=== PATIENT | male | born 1945 | race Caucasian/White ===

== ENCOUNTER 2020-10-02 18:36 | Observation (INO) | payer OTHER, MEDICARE ==
[~2020-10-02] VITALS: Ht 172.7 cm; Wt 85.7 kg
[~2020-10-02 18:36] MED LIST: AMLO5 PO; ATOR40TA PO; Aspir 8181 MG PO; CLIN300 PO; HYDR1TAB94 PO; METO50 PO; MULVIT PO; ONDA4ODT MM; Percocet 5-3251 EACH PO; TAMS.4ER PO
[2020-10-02 19:26] LABS: BASOPHILS ABSOLUTE AUTO 0.01 K/mm3 (0.00-0.23); BASOPHILS PERCENT AUTO 0 % (0-2); EOSINOPHILS PERCENT AUTO 0 % (0-6); Hemoglobin 14.3 g/dL (13.5-17.5); IMMATURE GRAN ABSOLUTE AUTO 0.03 K/mm3 (0.00-0.10); IMMATURE GRAN PERCENT AUTO 0 % (0-1); LYMPHOCYTES ABSOLUTE AUTO 0.66 K/mm3 (0.84-5.20); LYMPHOCYTES PERCENT AUTO 6 % (21-46); MONOCYTES ABSOLUTE AUTO 0.37 K/mm3 (0.16-1.47); MONOCYTES PERCENT AUTO 4 % (4-13); Mean Corpuscular HGB 28.5 pg (26.0-34.0); Mean Corpuscular HGB Conc 32.5 g/dL (31.5-36.5); Mean Corpuscular Volume 88 fL (80-100); Mean Platelet Volume 9.9 fL (9.1-12.4); NEUTROPHILS ABSOLUTE AUTO 9.46 K/mm3 (1.96-9.15); NEUTROPHILS PERCENT AUTO 90 % (41-73); Platelet Count 274 K/mm3 (150-400); RDW Coefficient Variation 12.1 % (11.7-14.2); RDW Standard Deviation 38.8 fL (35.1-46.3); Red Blood Cell Count 5.02 M/mm3 (4.30-5.90); White Blood Cell Count 10.53 K/mm3 (4.00-11.30)
[2020-10-02 19:45] LABS: Alanine Aminotransfer (ALT/SGP 18 U/L (12-78); Albumin, Blood 3.9 g/dL (3.4-5.0); Albumin/Globulin Ratio 0.9 (0.8-1.8); Alk Phos 128 U/L (50-136); Anion Gap 8 mmol/L (6-16); Aspartate Aminotrans (AST/SGOT 22 U/L (12-37); Bilirubin, Total 1.1 mg/dL (0.1-1.0); Blood Urea Nitrogen 27 mg/dL (8-24); Bun/Creatinine Ratio 12.1 (12.0-20.0); CO2, Blood 27 mmol/L (21-32); Calcium, Blood 9.9 mg/dL (8.5-10.1); Chloride, Blood 109 mmol/L (98-108); Creatinine, Blood 2.23 mg/dL (0.60-1.20); Globulin, Blood 4.4 g/dL (2.2-4.0); Glomerular Filtration Rate 31 (60-); Glucose, Blood 161 mg/dL (70-99); Potassium, Blood 4.2 mmol/L (3.5-5.5); Sodium, Blood 144 mmol/L (136-145); Total Protein, Blood 8.3 g/dL (6.4-8.2); Troponin I <0.015 ng/mL (0.000-0.040)
[2020-10-03 01:57] LABS: Influenza A, PCR Negative (NEGATIVE); Influenza B, PCR Negative (NEGATIVE); Resp Syncytial Virus, PCR Negative (NEGATIVE); SARS-Cov-2 (COVID-19) PCR, MMC Negative (NEGATIVE)
[2020-10-03 02:54] LABS: Source, Urine Clean Catch
[2020-10-03 02:56] LABS: Appearance, Urine Clear (Clear); Bilirubin, Urine Neg (Neg); Blood, Urine 3+ (Neg); Color, Urine Yellow (P-Yellow); Glucose Qualitative, Urine Neg (Neg); Ketones, Urine 1+ (Neg); Leukocyte Esterase, Urine Neg (Neg); Nitrite, Urine Neg (Neg); Protein, Urine 3+ (Neg); Specific Gravity, Urine 1.015 (1.003-1.022); Urobilinogen, Urine NORM (Normal)
[2020-10-03 03:01] LABS: Squamous Epithelial Cells Few /hpf (Few)
[2020-10-03 03:02] LABS: Bacteria Few /hpf
[2020-10-03 05:56] LABS: BASOPHILS ABSOLUTE AUTO 0.01 K/mm3 (0.00-0.23); BASOPHILS PERCENT AUTO 0 % (0-2); EOSINOPHILS ABSOLUTE AUTO 0.01 K/mm3 (0.00-0.68); EOSINOPHILS PERCENT AUTO 0 % (0-6); Hematocrit 39.6 % (37.0-53.0); Hemoglobin 12.5 g/dL (13.5-17.5); IMMATURE GRAN ABSOLUTE AUTO 0.04 K/mm3 (0.00-0.10); IMMATURE GRAN PERCENT AUTO 0 % (0-1); LYMPHOCYTES ABSOLUTE AUTO 1.28 K/mm3 (0.84-5.20); LYMPHOCYTES PERCENT AUTO 12 % (21-46); MONOCYTES ABSOLUTE AUTO 0.78 K/mm3 (0.16-1.47); MONOCYTES PERCENT AUTO 7 % (4-13); Mean Corpuscular HGB 28.2 pg (26.0-34.0); Mean Corpuscular HGB Conc 31.6 g/dL (31.5-36.5); Mean Corpuscular Volume 89 fL (80-100); Mean Platelet Volume 9.5 fL (9.1-12.4); NEUTROPHILS ABSOLUTE AUTO 8.61 K/mm3 (1.96-9.15); NEUTROPHILS PERCENT AUTO 80 % (41-73); Platelet Count 235 K/mm3 (150-400); RDW Coefficient Variation 12.4 % (11.7-14.2); RDW Standard Deviation 40.7 fL (35.1-46.3); Red Blood Cell Count 4.43 M/mm3 (4.30-5.90); White Blood Cell Count 10.73 K/mm3 (4.00-11.30)
[2020-10-03 06:16] LABS: Bun/Creatinine Ratio 11.3 (12.0-20.0); Calcium, Blood 8.6 mg/dL (8.5-10.1); Creatinine, Blood 2.04 mg/dL (0.60-1.20); Potassium, Blood 3.8 mmol/L (3.5-5.5); Troponin I 0.023 ng/mL (0.000-0.040)
== END 2020-10-03 09:15 | disposition home or self-care (01) ==
LOC: ER 18:36 → ERHOLD 18:37
PROVIDERS: Emergency Medicine; ADMIT Family Medicine
DX: R11.2 Nausea with vomiting, unspecified (principal); I12.9 Hypertensive chronic kidney disease with stage 1 through stage 4 chronic kidney disease, or unspecified chronic kidney disease; N18.30 Chronic kidney disease, stage 3 unspecified; J43.9 Emphysema, unspecified; E78.5 Hyperlipidemia, unspecified; N40.0 Benign prostatic hyperplasia without lower urinary tract symptoms; Q60.0 Renal agenesis, unilateral; I77.810 Thoracic aortic ectasia; Z91.041 Radiographic dye allergy status; Z79.82 Long term (current) use of aspirin; Z79.899 Other long term (current) drug therapy; Z87.891 Personal history of nicotine dependence; Z95.828 Presence of other vascular implants and grafts; Z20.828 Contact with and (suspected) exposure to other viral communicable diseases; Z23 Encounter for immunization
CPT/HCPCS: 0241U; 36415; 51798; 71045; 71250; 80048; 80053; 81001; 83690; 84145; 84484; 85025; 93005; 93010; 94760; 96361; 96365; 96366; 96372-59; 96375; 99285-25; C9113; G0378; J1644; J2405; J7030

== ENCOUNTER 2021-10-21 22:32 | Emergency (ER) | payer MEDICARE, OTHER ==
[~2021-10-21] VITALS: Ht 180.3 cm; Wt 79.4 kg
[2021-10-21 23:20] LABS: BASOPHILS ABSOLUTE AUTO 0.02 K/mm3 (0.00-0.23); BASOPHILS PERCENT AUTO 0 % (0-2); EOSINOPHILS PERCENT AUTO 3 % (0-6); Hematocrit 36.8 % (37.0-53.0); Hemoglobin 11.4 g/dL (13.5-17.5); IMMATURE GRAN ABSOLUTE AUTO 0.02 K/mm3 (0.00-0.10); IMMATURE GRAN PERCENT AUTO 0 % (0-1); LYMPHOCYTES ABSOLUTE AUTO 1.35 K/mm3 (0.84-5.20); LYMPHOCYTES PERCENT AUTO 17 % (21-46); MONOCYTES ABSOLUTE AUTO 0.73 K/mm3 (0.16-1.47); MONOCYTES PERCENT AUTO 9 % (4-13); Mean Corpuscular HGB 26.5 pg (26.0-34.0); Mean Corpuscular Volume 86 fL (80-100); NEUTROPHILS ABSOLUTE AUTO 5.55 K/mm3 (1.96-9.15); NEUTROPHILS PERCENT AUTO 70 % (41-73); Platelet Count 210 K/mm3 (150-400); RDW Coefficient Variation 13.1 % (11.7-14.2); RDW Standard Deviation 40.6 fL (35.1-46.3); White Blood Cell Count 7.87 K/mm3 (4.00-11.30)
[2021-10-21 23:51] LABS: Albumin, Blood 2.4 g/dL (3.4-5.0); Albumin/Globulin Ratio 0.5 (0.8-1.8); Bilirubin, Total 0.3 mg/dL (0.1-1.0); Bun/Creatinine Ratio 16.6 (12.0-20.0); Calcium, Blood 8.9 mg/dL (8.5-10.1); Creatinine, Blood 1.93 mg/dL (0.60-1.20); Globulin, Blood 4.5 g/dL (2.2-4.0); Potassium, Blood 4.5 mmol/L (3.5-5.5); Total Protein, Blood 6.9 g/dL (6.4-8.2); Troponin I 0.019 ng/mL (0.000-0.040)
== END 2021-10-22 05:24 | disposition left against medical advice (07) ==
LOC: ER 22:32
PROVIDERS: Student in an Organized Health Care Education/Training Program
DX: R07.9 Chest pain, unspecified (principal); I10 Essential (primary) hypertension; E78.00 Pure hypercholesterolemia, unspecified; Z88.8 Allergy status to other drugs, medicaments and biological substances; Z79.82 Long term (current) use of aspirin; Z79.899 Other long term (current) drug therapy; Z87.891 Personal history of nicotine dependence
CPT/HCPCS: 36415; 71045; 80053; 84484; 85025; 93005; 93010; 99285-25

== ENCOUNTER 2022-03-28 21:32 | Inpatient (IN) | payer OTHER ==
[~2022-03-28] VITALS: Ht 180.3 cm; Wt 81.5 kg
[~2022-03-28 21:32] MED LIST changes: -ATOR40TA PO; +LIPITOR80 MG PO
[2022-03-28 22:25] LABS: BASOPHILS ABSOLUTE AUTO 0.02 K/mm3 (0.00-0.23); BASOPHILS PERCENT AUTO 0 % (0-2); EOSINOPHILS ABSOLUTE AUTO 0.17 K/mm3 (0.00-0.68); EOSINOPHILS PERCENT AUTO 2 % (0-6); Hematocrit 36.5 % (37.0-53.0); Hemoglobin 11.4 g/dL (13.5-17.5); IMMATURE GRAN ABSOLUTE AUTO 0.02 K/mm3 (0.00-0.10); IMMATURE GRAN PERCENT AUTO 0 % (0-1); LYMPHOCYTES ABSOLUTE AUTO 1.84 K/mm3 (0.84-5.20); LYMPHOCYTES PERCENT AUTO 21 % (21-46); MONOCYTES ABSOLUTE AUTO 0.71 K/mm3 (0.16-1.47); MONOCYTES PERCENT AUTO 8 % (4-13); Mean Corpuscular HGB 27.1 pg (26.0-34.0); Mean Corpuscular HGB Conc 31.2 g/dL (31.5-36.5); Mean Corpuscular Volume 87 fL (80-100); NEUTROPHILS ABSOLUTE AUTO 6.23 K/mm3 (1.96-9.15); NEUTROPHILS PERCENT AUTO 69 % (41-73); Platelet Count 228 K/mm3 (150-400); RDW Coefficient Variation 12.7 % (11.7-14.2); RDW Standard Deviation 40.4 fL (35.1-46.3); White Blood Cell Count 8.99 K/mm3 (4.00-11.30)
[2022-03-28 22:44] LABS: Albumin, Blood 2.8 g/dL (3.4-5.0); Albumin/Globulin Ratio 0.6 (0.8-1.8); Bilirubin, Total 0.4 mg/dL (0.1-1.0); Bun/Creatinine Ratio 13.6 (12.0-20.0); Calcium, Blood 9.1 mg/dL (8.5-10.1); Creatinine, Blood 2.2 mg/dL (0.60-1.20); Globulin, Blood 4.7 g/dL (2.2-4.0); Potassium, Blood 3.7 mmol/L (3.5-5.5); Total Protein, Blood 7.5 g/dL (6.4-8.2)
[2022-03-28 22:46] LABS: D-Dimer, Quantitative 10.47 mg/L FEU (0.00-0.52)
[2022-03-29 00:33] LABS: Anti-Xa UFH, PHA Monitoring <0.10 IU/mL; International Normalized Ratio 1.16; Prothrombin Time Results 12.1 Sec (9.7-11.5)
--- NOTE | 2022-03-29 04:33 | NUR ---
SHIFT SUMMARY: ED ADMIT FOR SOB. PATIENT ARRIVED ON 6L SAT 100%. DECREASED O2 TO 2L PATIENT TOLERATED WELL AND SAT >95%. AMBULATED TO BATHROOM SBA FOR SAFETY- NO SIGNS OF DYSPNEA. EXPRIATORY WHEEZES NOTED BILATERAL UPPER LOBES. TELE = NSR/ST 90-110S MURMUR. USING URNAL FOR URINARY FREQUENCY. PATIENT EXPRESSED STRESS REGARDING HIS NOT BEING HOME WHEN HE LEFT FOR THE HOSPITAL.
[2022-03-29 08:24] LABS: BASOPHILS ABSOLUTE AUTO 0.02 K/mm3 (0.00-0.23); BASOPHILS PERCENT AUTO 0 % (0-2); EOSINOPHILS ABSOLUTE AUTO 0.05 K/mm3 (0.00-0.68); EOSINOPHILS PERCENT AUTO 1 % (0-6); Hematocrit 33.8 % (37.0-53.0); Hemoglobin 10.5 g/dL (13.5-17.5); IMMATURE GRAN ABSOLUTE AUTO 0.02 K/mm3 (0.00-0.10); IMMATURE GRAN PERCENT AUTO 0 % (0-1); LYMPHOCYTES ABSOLUTE AUTO 0.74 K/mm3 (0.84-5.20); LYMPHOCYTES PERCENT AUTO 11 % (21-46); MONOCYTES ABSOLUTE AUTO 0.66 K/mm3 (0.16-1.47); MONOCYTES PERCENT AUTO 10 % (4-13); Mean Corpuscular HGB 26.8 pg (26.0-34.0); Mean Corpuscular HGB Conc 31.1 g/dL (31.5-36.5); Mean Corpuscular Volume 86 fL (80-100); Mean Platelet Volume 9.7 fL (9.1-12.4); NEUTROPHILS ABSOLUTE AUTO 5.32 K/mm3 (1.96-9.15); NEUTROPHILS PERCENT AUTO 78 % (41-73); Platelet Count 205 K/mm3 (150-400); RDW Coefficient Variation 12.9 % (11.7-14.2); RDW Standard Deviation 40.4 fL (35.1-46.3); Red Blood Cell Count 3.92 M/mm3 (4.30-5.90); White Blood Cell Count 6.81 K/mm3 (4.00-11.30)
[2022-03-29 08:52] LABS: Albumin, Blood 2.5 g/dL (3.4-5.0); Albumin/Globulin Ratio 0.6 (0.8-1.8); Bilirubin, Total 0.5 mg/dL (0.1-1.0); Bun/Creatinine Ratio 12.9 (12.0-20.0); Creatinine, Blood 2.24 mg/dL (0.60-1.20); Globulin, Blood 4.5 g/dL (2.2-4.0); Potassium, Blood 3.8 mmol/L (3.5-5.5)
[2022-03-29 14:17] LABS: Percent Saturation 18.2 % (20.0-50.0)
[2022-03-29 14:20] LABS: CPK Creatine Kinase 30 U/L (39-308)
--- NOTE | 2022-03-29 14:40 | NUR ---
CRITICAL LAB PT'S TROPONIN CAME BACK AT 264 FROM INITIAL TROPONIN OF 71. NOTIFIED.
--- NOTE | 2022-03-29 18:42 | NUR ---
SHIFT SUMMARY PT A&OX4. VSS. VQ SCAN & ECHO DONE TODAY. PT'S TROPONIN ELEVATED WITH CRITICAL VALUE. 12 LEAD EKG DONE & ON CHART PER MD ORDER. PT HAS DENIED CP, SOB, LIGHTHEADEDNESS, NAUSEA, DIZZINESS. CARDIOLOGY REFERRAL MADE. PT IS NPO AFTER MN. HEPARIN GTT RUNNING AT ORDERED RATE. TELE SHOWS NSR WITH HR 70'S. PT INDEPENDENT WITH URINAL.
[2022-03-30 04:20] LABS: Hemoglobin 9.9 g/dL (13.5-17.5); Mean Platelet Volume 10.3 fL (9.1-12.4); Platelet Count 196 K/mm3 (150-400)
[2022-03-30 04:38] LABS: Albumin, Blood 2.2 g/dL (3.4-5.0); Anion Gap 6 mmol/L (6-16); Blood Urea Nitrogen 37 mg/dL (8-24); Bun/Creatinine Ratio 15.9 (12.0-20.0); CHOL/HDL RATIO 4.4; CO2, Blood 25 mmol/L (21-32); CPK Creatine Kinase 22 U/L (39-308); Calcium, Blood 8.5 mg/dL (8.5-10.1); Chloride, Blood 111 mmol/L (98-108); Cholesterol 141 mg/dL (50-200); Creatinine, Blood 2.33 mg/dL (0.60-1.20); Glomerular Filtration Rate 28 (60-); Glucose, Blood 111 mg/dL (70-99); HDL Cholesterol 32 mg/dL (>39); LDL/HDL RATIO 2.9; Low Density Lipoprotein Chol 93 mg/dL (0-110); Phosphorus, Blood 3.5 mg/dL (2.5-4.9); Potassium, Blood 4.2 mmol/L (3.5-5.5); Sodium, Blood 142 mmol/L (136-145); Triglycerides 78 mg/dL (30-160); Very Low Density Lipoprot Chol 15 mg/dL (6-32)
--- NOTE | 2022-03-30 05:37 | NUR ---
SHIFT SUMMARY PATIENT ALERT AND ORIENTED. MEDICATED PER EMAR FOR PAIN. REPORTED HAVING POSITIONAL CHEST PAIN, WORSE LAYING DOWN AND RELIEVED WHEN SITTING UP. TREATED PER RT FOR DIFFICULTY BREATHING. BED IN LOWEST POSITION WITH WHEELS LOCKED AND ALARM ON. CALL LIGHT WITHIN REACH. REPORT GIVEN TO ONCOMING RN.
--- NOTE | 2022-03-30 07:48 | NUR ---
HEPARIN DC'D PER MD ORDERS.
--- NOTE | 2022-03-30 09:02 | NUR ---
TELEMETRY RECEIVED CALL FROM [employer] REQUESTED AN ADJUSTMENT ON TELE LEADS TO DETERMINE IF AN EKG IS WARRANTED. SHE WILL SPEAK WITH HER BEAN PICKER AND CALL THIS RN BACK IF AN EKG IS NEEDED. PT DENIES ANY NEW CP, DIFFICULTY BREATHING, NAUSEA, LIGHTHEADEDNESS OR DIZZINESS.
--- NOTE | 2022-03-30 09:22 | NUR ---
LAUNCH ENGINEER IN PT TO GO TO THE OVEREDGE SEWER TODAY AT APPROX NOON. MD WENT OVER CONSENT AND PT SIGNED. CONSENT ON THE CHART. PT HAS BEEN NPO SINCE RI. MEDS GIVEN THIS AM. HEPARIN GTT REMAINS OFF.
--- NOTE | 2022-03-30 13:55 | NUR ---
PCU ADMIT: Pt arrived to PCU from labor service representative at 1336. TR band in place with 11mls of air. Distal CMS intact.
--- NOTE | 2022-03-30 19:22 | NUR ---
SHIFT SUMMARY: Pt transferred to PCU from Medical floor after stent placement in the LAD. NEURO: intact, sleepy; he received one dose of PRN norco for chronic back pain RESPIRATORY: CTA on RA CARDIAC: bilateral edal pulses palpable 1+, radial pulses 2+. TR band was removed without any rebleading of radial access site. pt received reinforment of TR band education. GI/: Pt using urinal independantly. He tolerated his dinner well Skin/MSK: No change Psych/Social: Pt's at bedside after procedure and was appropriately attentive to pt.
[2022-03-31 03:54] LABS: BASOPHILS ABSOLUTE AUTO 0.01 K/mm3 (0.00-0.23); BASOPHILS PERCENT AUTO 0 % (0-2); EOSINOPHILS ABSOLUTE AUTO 0.13 K/mm3 (0.00-0.68); EOSINOPHILS PERCENT AUTO 3 % (0-6); Hematocrit 30.4 % (37.0-53.0); Hemoglobin 9.4 g/dL (13.5-17.5); IMMATURE GRAN ABSOLUTE AUTO 0.01 K/mm3 (0.00-0.10); IMMATURE GRAN PERCENT AUTO 0 % (0-1); LYMPHOCYTES ABSOLUTE AUTO 1.19 K/mm3 (0.84-5.20); LYMPHOCYTES PERCENT AUTO 23 % (21-46); MONOCYTES PERCENT AUTO 10 % (4-13); Mean Corpuscular HGB 26.7 pg (26.0-34.0); Mean Corpuscular HGB Conc 30.9 g/dL (31.5-36.5); Mean Corpuscular Volume 86 fL (80-100); Mean Platelet Volume 10.2 fL (9.1-12.4); NEUTROPHILS ABSOLUTE AUTO 3.45 K/mm3 (1.96-9.15); NEUTROPHILS PERCENT AUTO 65 % (41-73); Platelet Count 207 K/mm3 (150-400); RDW Coefficient Variation 13.2 % (11.7-14.2); RDW Standard Deviation 41.4 fL (35.1-46.3); Red Blood Cell Count 3.52 M/mm3 (4.30-5.90); White Blood Cell Count 5.29 K/mm3 (4.00-11.30)
[2022-03-31 04:16] LABS: Albumin, Blood 2.2 g/dL (3.4-5.0); Anion Gap 8 mmol/L (6-16); Blood Urea Nitrogen 41 mg/dL (8-24); Bun/Creatinine Ratio 17.1 (12.0-20.0); CO2, Blood 22 mmol/L (21-32); Calcium, Blood 8.5 mg/dL (8.5-10.1); Chloride, Blood 111 mmol/L (98-108); Glomerular Filtration Rate 27 (60-); Glucose, Blood 96 mg/dL (70-99); Potassium, Blood 3.6 mmol/L (3.5-5.5); Sodium, Blood 141 mmol/L (136-145)
--- NOTE | 2022-03-31 06:12 | NUR ---
End of shift summary Overnight without issues, VSS, room air, no CP, eager to go home today MACHELLE Osborne
--- NOTE | 2022-03-31 09:26 | NUR ---
AM NOTE: PATIENT ALERT AND ORIENTED X4. HARD OF HEARING. DENIES NUMBNESS/TINGLING. UP TO BATHROOM WITH SBA. ON ROOM AIR, LUNGS SOUNDING CLEAR. DENIES CHEST PAIN/PRESSURE. TELE SHOWING SINUS RHYTHM WITH HR 70-80'S. BP STABLE. MINIMAL EDEMA IN BLE. RIGHT RADIAL SITE POST ANGIO WNL. TEGADERM AND ARM BOARD IN PLACE. SITE REMAINS SOFT, NONTENDER. NO BRUISING OR SIGNS OF BLEEDING. STRONG RADIAL PULSES. AVA ABDOMINAL PAIN/NAUSEA. TOLERATING PO DIET WELL. MODERATE BM THIS AM. USING URINAL TO VOID. ANXIOUS TO GET HOME. DENIES NEEDS AT THIS TIME. PLAN FOR DISCHARGE TODAY. WILL CONTINUE TO MONITOR.
[2022-03-31] MEDS ORDERED: HYDRA25 PO (09:47)
[2022-03-31] MEDS ORDERED: FURO40 PO (09:47)
[2022-03-31] MEDS ORDERED: CLOP75 PO (09:47)
[2022-03-31] MEDS ORDERED: METO50ER PO (09:47)
[2022-03-31] MEDS ORDERED: Isosorbide Mono30 MG PO (09:48)
[2022-03-31] MEDS ORDERED: NITR.4SL SL (09:48)
--- NOTE | 2022-03-31 11:42 | NUR ---
DISCHARGE NOTE: NO ACUTE CHANGES, SEE PREVIOUS AM NOTE FOR UPDATES. VITAL SIGNS REMAIN STABLE. NO CHANGES IN TELE. REMAINED ON ROOM AIR. DENIES PAINS. AND BROTHER AT BEDSIDE FOR DISCHARGE INSTRUCTIONS. THIS RN PROVIDED EXTENSIVE VERBAL AND WRITTEN EDUCATION ON FLUID RESTRICTION, DAILY WEIGHTS, FOLLOW UP APPOINTMENTS, NEW MEDICATIONS (DOSAGE AND TIMING), RIGHT RADIAL SITE AFTER CARE, HEART HEALTHY DIET, SIGNS AND SYMPTOMS OF CHF INCLUDING FLUID OVERLOAD, AND STENT CARD MATERIAL. MEDICATIONS FAXED TO [facility]. IV TAKEN OUT PER PROTOCOL AND WNL. PATIENT LEFT UNIT VIA WHEELCHAIR WITH ALL PERSONAL BELONGINGS, STENT CARD, AND DISCHARGE INFORMATION.
== END 2022-03-31 11:35 | disposition home or self-care (01) | DRG 246 ==
LOC: ER 21:32 → MEDS 23:44 → ER 03-29 00:37 → MEDS 03-29 00:37 → PCU 03-30 13:34 → MEDS 03-30 13:34 → PCU 03-30 13:34
PROVIDERS: Internal Medicine; Internal Medicine Cardiovascular Disease; Student in an Organized Health Care Education/Training Program; ADMIT Internal Medicine
PROC: 027034Z Dilation of Coronary Artery, One Artery with Drug-eluting Intraluminal Device, Percutaneous Approach (ICD-10-PCS; principal; 2022-03-30)
PROC: 4A023N7 Measurement of Cardiac Sampling and Pressure, Left Heart, Percutaneous Approach (ICD-10-PCS; 2022-03-30)
PROC: B2111ZZ Fluoroscopy of Multiple Coronary Arteries using Low Osmolar Contrast (ICD-10-PCS; 2022-03-30)
DX: I13.0 Hypertensive heart and chronic kidney disease with heart failure and stage 1 through stage 4 chronic kidney disease, or unspecified chronic kidney disease (principal); I50.21 Acute systolic (congestive) heart failure; I21.4 Non-ST elevation (NSTEMI) myocardial infarction; J96.01 Acute respiratory failure with hypoxia; N18.4 Chronic kidney disease, stage 4 (severe); R79.1 Abnormal coagulation profile; I25.5 Ischemic cardiomyopathy; I73.9 Peripheral vascular disease, unspecified; I25.10 Atherosclerotic heart disease of native coronary artery without angina pectoris; I71.2 Thoracic aortic aneurysm, without rupture; I27.20 Pulmonary hypertension, unspecified; I08.3 Combined rheumatic disorders of mitral, aortic and tricuspid valves; J44.9 Chronic obstructive pulmonary disease, unspecified; E78.5 Hyperlipidemia, unspecified; Z91.048 Other nonmedicinal substance allergy status; Z79.899 Other long term (current) drug therapy; Z79.82 Long term (current) use of aspirin; Z98.890 Other specified postprocedural states; Z87.891 Personal history of nicotine dependence; Z95.5 Presence of coronary angioplasty implant and graft
CPT/HCPCS: 36415; 71045; 78580; 80053; 80061; 80069; 82550; 82728; 83540; 83550; 83880; 84484; 85014; 85018; 85025; 85049; 85347; 85379; 85520; 85610; 93005; 93010; 93306; 93454; 93571; 93572; 94640; 94664; 94760; 94762; 96374; 99152; 99153; 99285-25; A9270; A9540; C1725; C1769; C1874; C1887; C1894; C9600; J1644; J1940; J2250; J3010; J7030; J7040; Q9967

== ENCOUNTER 2022-04-14 16:58 | Emergency (ER) | payer OTHER ==
[~2022-04-14] VITALS: Ht 180.3 cm; Wt 79.4 kg
[~2022-04-14 16:58] MED LIST changes: +CLOP75 PO; +FURO40 PO; +HYDRA25 PO; +Isosorbide Mono30 MG PO; +METO50ER PO; +NITR.4SL SL
[2022-04-14 18:04] LABS: BASOPHILS ABSOLUTE AUTO 0.02 K/mm3 (0.00-0.23); BASOPHILS PERCENT AUTO 0 % (0-2); EOSINOPHILS ABSOLUTE AUTO 0.22 K/mm3 (0.00-0.68); EOSINOPHILS PERCENT AUTO 3 % (0-6); Hematocrit 33.8 % (37.0-53.0); Hemoglobin 10.4 g/dL (13.5-17.5); IMMATURE GRAN ABSOLUTE AUTO 0.01 K/mm3 (0.00-0.10); IMMATURE GRAN PERCENT AUTO 0 % (0-1); LYMPHOCYTES ABSOLUTE AUTO 1.44 K/mm3 (0.84-5.20); LYMPHOCYTES PERCENT AUTO 22 % (21-46); MONOCYTES ABSOLUTE AUTO 0.52 K/mm3 (0.16-1.47); MONOCYTES PERCENT AUTO 8 % (4-13); Mean Corpuscular HGB Conc 30.8 g/dL (31.5-36.5); Mean Corpuscular Volume 88 fL (80-100); Mean Platelet Volume 10.4 fL (9.1-12.4); NEUTROPHILS ABSOLUTE AUTO 4.39 K/mm3 (1.96-9.15); NEUTROPHILS PERCENT AUTO 67 % (41-73); Platelet Count 209 K/mm3 (150-400); RDW Coefficient Variation 13.5 % (11.7-14.2); RDW Standard Deviation 43.4 fL (35.1-46.3); Red Blood Cell Count 3.85 M/mm3 (4.30-5.90)
[2022-04-14 18:23] LABS: Albumin, Blood 2.7 g/dL (3.4-5.0); Albumin/Globulin Ratio 0.6 (0.8-1.8); Bilirubin, Total 0.5 mg/dL (0.1-1.0); Bun/Creatinine Ratio 14.1 (12.0-20.0); Calcium, Blood 8.5 mg/dL (8.5-10.1); Creatinine, Blood 2.34 mg/dL (0.60-1.20); Globulin, Blood 4.2 g/dL (2.2-4.0); Potassium, Blood 4.1 mmol/L (3.5-5.5); Total Protein, Blood 6.9 g/dL (6.4-8.2)
== END 2022-04-14 22:00 | disposition home or self-care (01) ==
LOC: ER 16:58
PROVIDERS: Physician Assistant
DX: R06.00 Dyspnea, unspecified (principal); I13.0 Hypertensive heart and chronic kidney disease with heart failure and stage 1 through stage 4 chronic kidney disease, or unspecified chronic kidney disease; I50.20 Unspecified systolic (congestive) heart failure; N18.4 Chronic kidney disease, stage 4 (severe); J44.9 Chronic obstructive pulmonary disease, unspecified; Z79.82 Long term (current) use of aspirin; Z79.899 Other long term (current) drug therapy; Z88.8 Allergy status to other drugs, medicaments and biological substances
CPT/HCPCS: 36415; 71046; 80053; 83880; 84484; 85025; 93005; 93010

== ENCOUNTER 2022-10-01 10:09 | Emergency (ER) | payer OTHER ==
[~2022-10-01] VITALS: Ht 180.3 cm; Wt 74.8 kg
[~2022-10-01 10:09] MED LIST changes: +FURO20 PO
[2022-10-01 10:46] LABS: BASOPHILS ABSOLUTE AUTO 0.02 K/mm3 (0.00-0.23); BASOPHILS PERCENT AUTO 0 % (0-2); EOSINOPHILS ABSOLUTE AUTO 0.22 K/mm3 (0.00-0.68); EOSINOPHILS PERCENT AUTO 3 % (0-6); Hematocrit 24.3 % (37.0-53.0); Hemoglobin 7.5 g/dL (13.5-17.5); IMMATURE GRAN ABSOLUTE AUTO 0.03 K/mm3 (0.00-0.10); IMMATURE GRAN PERCENT AUTO 0 % (0-1); LYMPHOCYTES ABSOLUTE AUTO 1.09 K/mm3 (0.84-5.20); LYMPHOCYTES PERCENT AUTO 16 % (21-46); MONOCYTES ABSOLUTE AUTO 0.67 K/mm3 (0.16-1.47); MONOCYTES PERCENT AUTO 10 % (4-13); Mean Corpuscular HGB 29.1 pg (26.0-34.0); Mean Corpuscular HGB Conc 30.9 g/dL (31.5-36.5); Mean Corpuscular Volume 94 fL (80-100); Mean Platelet Volume 9.8 fL (9.1-12.4); NEUTROPHILS ABSOLUTE AUTO 4.92 K/mm3 (1.96-9.15); NEUTROPHILS PERCENT AUTO 71 % (41-73); Platelet Count 244 K/mm3 (150-400); RDW Coefficient Variation 12.6 % (11.7-14.2); RDW Standard Deviation 43.2 fL (35.1-46.3); Red Blood Cell Count 2.58 M/mm3 (4.30-5.90); White Blood Cell Count 6.95 K/mm3 (4.00-11.30)
[2022-10-01 11:06] LABS: Albumin, Blood 2.8 g/dL (3.4-5.0); Albumin/Globulin Ratio 0.7 (0.8-1.8); Bilirubin, Total 0.7 mg/dL (0.1-1.0); Bun/Creatinine Ratio 16.9 (12.0-20.0); Calcium, Blood 8.3 mg/dL (8.5-10.1); Creatinine, Blood 2.43 mg/dL (0.60-1.20); Globulin, Blood 4.2 g/dL (2.2-4.0); Potassium, Blood 4.5 mmol/L (3.5-5.5)
[2022-10-01 16:33] LABS: Hemoglobin 7.2 g/dL (13.5-17.5); Mean Corpuscular HGB 28.6 pg (26.0-34.0); Mean Corpuscular Volume 95 fL (80-100); Mean Platelet Volume 9.8 fL (9.1-12.4); Platelet Count 219 K/mm3 (150-400); RDW Coefficient Variation 12.7 % (11.7-14.2); RDW Standard Deviation 43.7 fL (35.1-46.3); Red Blood Cell Count 2.52 M/mm3 (4.30-5.90)
[2022-10-01] MEDS ORDERED: Norco 5-325 Ta1 EACH PO (16:59)
== END 2022-10-01 17:28 | disposition home or self-care (01) ==
LOC: ER 10:09
PROVIDERS: Student in an Organized Health Care Education/Training Program
DX: S36.892A Contusion of other intra-abdominal organs, initial encounter (principal); R10.31 Right lower quadrant pain; R07.9 Chest pain, unspecified; I12.9 Hypertensive chronic kidney disease with stage 1 through stage 4 chronic kidney disease, or unspecified chronic kidney disease; N18.4 Chronic kidney disease, stage 4 (severe); J44.9 Chronic obstructive pulmonary disease, unspecified; I25.2 Old myocardial infarction; W07.XXXA Fall from chair, initial encounter; Z91.048 Other nonmedicinal substance allergy status; Z79.82 Long term (current) use of aspirin; Z79.899 Other long term (current) drug therapy; Z87.891 Personal history of nicotine dependence
CPT/HCPCS: 36415; 71045; 71260; 74177; 80053; 84484; 85025; 85027; 86850; 86900; 86901; 93005; 93010; A9270; J1200; J2930; Q9967

== ENCOUNTER 2022-10-11 23:05 | Emergency (ER) | payer OTHER ==
[~2022-10-11 23:05] MED LIST changes: +Norco 5-325 Ta1 EACH PO
== END 2022-10-12 02:43 | disposition home or self-care (01) ==
DX: R07.89 Other chest pain (principal); I12.9 Hypertensive chronic kidney disease with stage 1 through stage 4 chronic kidney disease, or unspecified chronic kidney disease; N18.4 Chronic kidney disease, stage 4 (severe); J44.9 Chronic obstructive pulmonary disease, unspecified; E78.5 Hyperlipidemia, unspecified; I25.2 Old myocardial infarction; Z91.048 Other nonmedicinal substance allergy status; Z79.82 Long term (current) use of aspirin; Z79.899 Other long term (current) drug therapy; Z87.891 Personal history of nicotine dependence

== ENCOUNTER 2022-10-22 13:58 | Emergency (ER) | payer OTHER ==
[~2022-10-22] VITALS: Ht 180.3 cm; Wt 77.1 kg
[2022-10-22 15:13] LABS: BASOPHILS ABSOLUTE AUTO 0.01 K/mm3 (0.00-0.23); BASOPHILS PERCENT AUTO 0 % (0-2); EOSINOPHILS ABSOLUTE AUTO 0.29 K/mm3 (0.00-0.68); EOSINOPHILS PERCENT AUTO 5 % (0-6); Hematocrit 28.7 % (37.0-53.0); Hemoglobin 8.6 g/dL (13.5-17.5); IMMATURE GRAN ABSOLUTE AUTO 0.01 K/mm3 (0.00-0.10); IMMATURE GRAN PERCENT AUTO 0 % (0-1); LYMPHOCYTES ABSOLUTE AUTO 0.95 K/mm3 (0.84-5.20); LYMPHOCYTES PERCENT AUTO 16 % (21-46); MONOCYTES ABSOLUTE AUTO 0.56 K/mm3 (0.16-1.47); MONOCYTES PERCENT AUTO 10 % (4-13); Mean Corpuscular HGB 28.7 pg (26.0-34.0); Mean Corpuscular Volume 96 fL (80-100); Mean Platelet Volume 9.9 fL (9.1-12.4); NEUTROPHILS ABSOLUTE AUTO 4.07 K/mm3 (1.96-9.15); NEUTROPHILS PERCENT AUTO 69 % (41-73); Platelet Count 185 K/mm3 (150-400); RDW Coefficient Variation 14.6 % (11.7-14.2); RDW Standard Deviation 50.4 fL (35.1-46.3); White Blood Cell Count 5.89 K/mm3 (4.00-11.30)
[2022-10-22 15:33] LABS: Albumin, Blood 2.9 g/dL (3.4-5.0); Albumin/Globulin Ratio 0.8 (0.8-1.8); Bilirubin, Total 0.7 mg/dL (0.1-1.0); Bun/Creatinine Ratio 14.8 (12.0-20.0); Calcium, Blood 8.5 mg/dL (8.5-10.1); Creatinine, Blood 2.23 mg/dL (0.60-1.20); Globulin, Blood 3.5 g/dL (2.2-4.0); Total Protein, Blood 6.4 g/dL (6.4-8.2)
== END 2022-10-22 20:01 | disposition home or self-care (01) ==
LOC: ER 13:58
PROVIDERS: Physician Assistant
DX: M71.21 Synovial cyst of popliteal space [Baker], right knee (principal); I12.9 Hypertensive chronic kidney disease with stage 1 through stage 4 chronic kidney disease, or unspecified chronic kidney disease; N18.4 Chronic kidney disease, stage 4 (severe); E78.5 Hyperlipidemia, unspecified; J44.9 Chronic obstructive pulmonary disease, unspecified; Z88.8 Allergy status to other drugs, medicaments and biological substances; Z79.899 Other long term (current) drug therapy; Z87.891 Personal history of nicotine dependence
CPT/HCPCS: 36415; 80053; 83605; 85025; 93971

== ENCOUNTER 2022-11-06 00:15 | Emergency (ER) | payer OTHER ==
[~2022-11-06] VITALS: Ht 180.3 cm; Wt 77.1 kg
[2022-11-06 00:32] LABS: BASOPHILS ABSOLUTE AUTO 0.02 K/mm3 (0.00-0.23); BASOPHILS PERCENT AUTO 0 % (0-2); EOSINOPHILS ABSOLUTE AUTO 0.03 K/mm3 (0.00-0.68); EOSINOPHILS PERCENT AUTO 0 % (0-6); Hematocrit 31.1 % (37.0-53.0); Hemoglobin 9.5 g/dL (13.5-17.5); IMMATURE GRAN ABSOLUTE AUTO 0.03 K/mm3 (0.00-0.10); IMMATURE GRAN PERCENT AUTO 0 % (0-1); LYMPHOCYTES ABSOLUTE AUTO 2.25 K/mm3 (0.84-5.20); LYMPHOCYTES PERCENT AUTO 34 % (21-46); MONOCYTES ABSOLUTE AUTO 0.51 K/mm3 (0.16-1.47); MONOCYTES PERCENT AUTO 8 % (4-13); Mean Corpuscular HGB 28.4 pg (26.0-34.0); Mean Corpuscular HGB Conc 30.5 g/dL (31.5-36.5); Mean Corpuscular Volume 93 fL (80-100); Mean Platelet Volume 10.7 fL (9.1-12.4); NEUTROPHILS ABSOLUTE AUTO 3.88 K/mm3 (1.96-9.15); NEUTROPHILS PERCENT AUTO 58 % (41-73); Platelet Count 134 K/mm3 (150-400); RDW Coefficient Variation 13.8 % (11.7-14.2); RDW Standard Deviation 46.7 fL (35.1-46.3); Red Blood Cell Count 3.34 M/mm3 (4.30-5.90); White Blood Cell Count 6.72 K/mm3 (4.00-11.30)
[2022-11-06 00:56] LABS: Bun/Creatinine Ratio 17.6 (12.0-20.0); Calcium, Blood 8.4 mg/dL (8.5-10.1); Creatinine, Blood 2.5 mg/dL (0.60-1.20); Potassium, Blood 4.4 mmol/L (3.5-5.5)
[2022-11-06] MEDS ORDERED: PRED20 PO (01:40)
[2022-11-06] MEDS ORDERED: ALBU90OI INH (01:40)
== END 2022-11-06 02:37 | disposition home or self-care (01) ==
LOC: ER 00:15
PROVIDERS: Emergency Medicine
DX: J44.1 Chronic obstructive pulmonary disease with (acute) exacerbation (principal); I12.9 Hypertensive chronic kidney disease with stage 1 through stage 4 chronic kidney disease, or unspecified chronic kidney disease; N18.4 Chronic kidney disease, stage 4 (severe); D64.9 Anemia, unspecified; E78.5 Hyperlipidemia, unspecified; I25.2 Old myocardial infarction; Z91.048 Other nonmedicinal substance allergy status; Z79.82 Long term (current) use of aspirin; Z79.899 Other long term (current) drug therapy; Z87.891 Personal history of nicotine dependence
CPT/HCPCS: 36415; 71045; 80048; 85025; 93005; 93010; 94644; 94664; J2930

== ENCOUNTER 2022-11-22 11:59 | Inpatient (IN) | payer OTHER ==
[~2022-11-22] VITALS: Ht 180.3 cm; Wt 81.2 kg
[~2022-11-22 11:59] MED LIST changes: +ALBU90OI INH; +PRED20 PO
[2022-11-22] MEDS ORDERED: DIPH50 PO (12:18)
[2022-11-22] MEDS ORDERED: [UNRECOGNIZED DRUG - CODE] SC (12:21)
[2022-11-22 12:49] LABS: Base Excess Venous -5.4 mmol/L; PCO2 Venous 42.5 mmHg (38-42); PO2 Venous 55.2 mmHg (38-42)
[2022-11-22 13:02] LABS: Albumin, Blood 2.8 g/dL (3.4-5.0); Albumin/Globulin Ratio 0.9 (0.8-1.8); BASOPHILS ABSOLUTE AUTO 0.01 K/mm3 (0.00-0.23); BASOPHILS PERCENT AUTO 0 % (0-2); Bilirubin, Total 0.8 mg/dL (0.1-1.0); Bun/Creatinine Ratio 13.7 (12.0-20.0); Calcium, Blood 7.8 mg/dL (8.5-10.1); Creatinine, Blood 2.55 mg/dL (0.60-1.20); EOSINOPHILS ABSOLUTE AUTO 0.08 K/mm3 (0.00-0.68); EOSINOPHILS PERCENT AUTO 1 % (0-6); Hematocrit 30.9 % (37.0-53.0); Hemoglobin 9.5 g/dL (13.5-17.5); IMMATURE GRAN ABSOLUTE AUTO 0.02 K/mm3 (0.00-0.10); IMMATURE GRAN PERCENT AUTO 0 % (0-1); LYMPHOCYTES ABSOLUTE AUTO 0.52 K/mm3 (0.84-5.20); LYMPHOCYTES PERCENT AUTO 7 % (21-46); MONOCYTES ABSOLUTE AUTO 0.41 K/mm3 (0.16-1.47); MONOCYTES PERCENT AUTO 6 % (4-13); Magnesium, Blood 2.2 mg/dL (1.6-2.4); Mean Corpuscular HGB 28.4 pg (26.0-34.0); Mean Corpuscular HGB Conc 30.7 g/dL (31.5-36.5); Mean Corpuscular Volume 92 fL (80-100); Mean Platelet Volume 11.5 fL (9.1-12.4); NEUTROPHILS ABSOLUTE AUTO 6.08 K/mm3 (1.96-9.15); NEUTROPHILS PERCENT AUTO 85 % (41-73); Platelet Count 106 K/mm3 (150-400); Potassium, Blood 3.9 mmol/L (3.5-5.5); RDW Coefficient Variation 15.1 % (11.7-14.2); RDW Standard Deviation 51.1 fL (35.1-46.3); Red Blood Cell Count 3.35 M/mm3 (4.30-5.90); Total Protein, Blood 5.8 g/dL (6.4-8.2); White Blood Cell Count 7.12 K/mm3 (4.00-11.30)
[2022-11-22 14:49] LABS: Influenza A, PCR NEGATIVE (NEGATIVE); Influenza B, PCR NEGATIVE (NEGATIVE); Resp Syncytial Virus, PCR NEGATIVE (NEGATIVE); SARS-Cov-2 (COVID-19) PCR, MMC NEGATIVE (NEGATIVE)
--- NOTE | 2022-11-22 22:55 | NUR ---
ADMISSION: PT ARRIVED TO PCU 15 AT 2150. ABLE TO AMBULATE FROM [facility] BED WITH MINIMAL ASSIST. ALERT AND ORIENTED X4 ABLE TO FOLLOW COMMANDS AND MAKE NEEDS KNOWN. BP HYPERTENSIVE: 150/103. PO BLOOD PRESSURE MEDICATIONS GIVEN. NO COMPLAINTS OF CP/PRESSURE AT THIS TIME. HR AFIB 100'S. SATURATIONS >97% ON RA, LUNG SOUNDS WET W/CRACKLES, RESP LABORED. PT STATES INCREASING SOB FOR X2 WEEKS. RADIAL PULSES STRONG, PEDAL PULSES FAINT/THREADY. +1 EDEMA NOTED IN BLE. SKIN WARM TO TOUCH. ABDOMIMAL HERNIA NOTED. PT HAS ABDOMINAL SCAR FROM PREVIOUS AAA REPAIR. PT CHANGED INTO NEW GOWN AND ATTENDS, URINAL AT BEDSIDE, BED IN LOW, CALL LIGHT IN REACH, ALARM ON, WILL CONTINUE TO MONITOR.
[2022-11-23 04:22] LABS: Hematocrit 30.3 % (37.0-53.0); Hemoglobin 9.6 g/dL (13.5-17.5); Mean Corpuscular HGB 28.5 pg (26.0-34.0); Mean Corpuscular HGB Conc 31.7 g/dL (31.5-36.5); Mean Corpuscular Volume 90 fL (80-100); Mean Platelet Volume 10.4 fL (9.1-12.4); Platelet Count 116 K/mm3 (150-400); RDW Coefficient Variation 15.2 % (11.7-14.2); RDW Standard Deviation 49.7 fL (35.1-46.3); Red Blood Cell Count 3.37 M/mm3 (4.30-5.90); White Blood Cell Count 3.29 K/mm3 (4.00-11.30)
--- NOTE | 2022-11-23 04:46 | NUR ---
SHIFT SUMMARY: NO ACUTE CHANGES SINCE ADMISSION. PT REMAINS ALERT AND ORIENTED X4, COOPERATIVE WITH CARE. HR AFIB 90'S. BP IMPROVED WITH PO MEDICATIONS, SEE EMAR. AFEBRILE. SATURATIONS >95% ON ROOM AIR. CONTINUING TO HAVE AUDIBLE WHEEZES AND DYSPNEA WITH EXCERTION. USES URINAL AT BEDSIDE, NO BM. ABLE TO REPOS IND. PT ANXIOUS REGARDING CURRENT HOME LIFE, PT STATES RECENTLY LEFT AND HAS NOONE TO TAKE CARE OF HIM ONCE D/C. BED IN LOW, ALARM ON, CALL LIGHT IN REACH, WILL REPORT TO ONCOMING RN.
[2022-11-23 04:49] LABS: Albumin, Blood 3.1 g/dL (3.4-5.0); Bilirubin, Total 1.1 mg/dL (0.1-1.0); Bun/Creatinine Ratio 14.8 (12.0-20.0); Calcium, Blood 8.5 mg/dL (8.5-10.1); Creatinine, Blood 2.77 mg/dL (0.60-1.20); Globulin, Blood 3.1 g/dL (2.2-4.0); Potassium, Blood 4.1 mmol/L (3.5-5.5); Total Protein, Blood 6.2 g/dL (6.4-8.2)
--- NOTE | 2022-11-23 10:18 | NUR ---
Pastoral care visitation conducted. Pt was at rest upon entry but easily stirred. He was pleasant and proceeded to share about his recent happenings related to his stay and familial dynamics. Pt communicated clearly about the relational tension with his family. Empathic listening and normalization of felt expression extended. Pt was appreciative and proceeded to rest subsequently. Pastoral support to remain available as needed prospectively.
--- NOTE | 2022-11-23 18:47 | NUR ---
DAY SHIFT SUMMARY PT ORIENTED X4, VSS. AFIB ON TELEMETRY. NOTIFIED DR. BHATT IN ROOM AT MORNING ROUNDS OF NO HISTORY NOTED OF AFIB AND PT UNSURE IF HE'D EVER HAD IT. NOT ON ANTICOAGULANT. MD TO PLACE ORDER FOR ECHO AND ANTICOAGULATION. PT REPORTS ANXIETY AND DISTRESS RELATED TO "LEAVING" HIM. THERAPEUTIC LISTENING AND PRESENCE UTILIZED AND PT REQUESTED JACQUARD LACE WEAVER. JACQUARD LACE WEAVER VISITED LATER IN DAY.
--- NOTE | 2022-11-24 04:58 | NUR ---
SHIFT SUMMARY: PT ALERT AND ORIENTED X4, COOPERATIVE WITH CARE. [place]. BP STABLE, HR REMAINS AFIB 70'S, AFEBRILE, SATURATIONS >95% ON ROOM AIR. PT WAS ABLE TO SLEEP MOST OF THE NIGHT. CALLS APPROPRIATLY. ABLE TO USE URINAL IND AT BEDSIDE. NO BM. PLAN TO START ANTI-COAGULANTS IN AM FOR NEW ONSET AFIB. BED IN LOW, ALARM ON, CALL LIGHT IN REACH, WILL REPORT TO ONCOMING RN.
--- NOTE | 2022-11-24 16:12 | NUR ---
UPDATE PT CONTINUES TO BE ALERT AND ORIENTED. VS STABLE. HR REMAINS AFIB 70'S. O2 SATS >90% ON RA. PT DENIES ANY PAIN. PT UP INDEPENDENT IN THE ROOM AND TO THE BATHROOM NEEDED. PT DENIES ANY PAIN THIS SHIFT. PLAN TO DC IN THE AM. WILL CONTINUE TO MONITOR AND REPORT TO ONCOMING RN
[2022-11-25 03:33] LABS: Base Excess Venous -0.5 mmol/L; Bicarbonate Venous 23.4 mmol/L (24.0-30.0); PCO2 Venous 44.3 mmHg (38-42); pH Blood Venous 7.36 (7.34-7.37)
--- NOTE | 2022-11-25 05:19 | NUR ---
SHIFT SUMMARY PT A&OX4, IND IN THE ROOM, AFIB 70'S-90'S ON TELE, AND SPO2 >93% ON RA. PT HAS DENIED ANGINA, N/V/D, SOB, AND PAIN THIS SHIFT. HE IS COOPERATIVE W/ CARE AND CALLS APPROPRIATELY. WILL CONTINUE TO MONITOR UNTIL SHIFT REPORT IS GIVEN TO THE ONCOMING SHIFT RN. SEE NOTES FOR ANY UPDATES.
--- NOTE | 2022-11-25 07:28 | NUR ---
Pt is alert oriented and pleasantly conversant. Denies any discomfort. Lung sounds are clear, spo2 99% on room air just after getting back to bed after using the toilet. NO dyspnea noted. Edema 1+ noted around his ankles; he states it is much better than it was before. No pedal edema, trace pretibial edema. He says that he is eager to go home today.
[2022-11-25 08:24] LABS: Calcium, Blood 8.2 mg/dL (8.5-10.1); Creatinine, Blood 3.18 mg/dL (0.60-1.20); Potassium, Blood 4.5 mmol/L (3.5-5.5)
--- NOTE | 2022-11-25 13:00 | NUR ---
Pt appears to be sleeping comfortably; he finished all of his lunch.
--- NOTE | 2022-11-25 13:43 | NUR ---
Pt is awake, states that a phone call from his daughter in [place] woke him up. He is requesting set up materials to shave. Set up with supplies to shave at bedside.
--- NOTE | 2022-11-25 16:07 | NUR ---
pt appears to be napping. Respirations are even and unlabored. Heart rate is 72 bpm, atrial fibrillation by telemetry monitoring.
[2022-11-26 04:03] LABS: BASOPHILS PERCENT AUTO 0 % (0-2); EOSINOPHILS ABSOLUTE AUTO 0.11 K/mm3 (0.00-0.68); EOSINOPHILS PERCENT AUTO 2 % (0-6); Hematocrit 32.1 % (37.0-53.0); IMMATURE GRAN ABSOLUTE AUTO 0.02 K/mm3 (0.00-0.10); IMMATURE GRAN PERCENT AUTO 0 % (0-1); LYMPHOCYTES ABSOLUTE AUTO 1.19 K/mm3 (0.84-5.20); LYMPHOCYTES PERCENT AUTO 17 % (21-46); MONOCYTES ABSOLUTE AUTO 0.64 K/mm3 (0.16-1.47); MONOCYTES PERCENT AUTO 9 % (4-13); Mean Corpuscular HGB Conc 31.2 g/dL (31.5-36.5); Mean Corpuscular Volume 90 fL (80-100); Mean Platelet Volume 11.4 fL (9.1-12.4); NEUTROPHILS ABSOLUTE AUTO 4.99 K/mm3 (1.96-9.15); NEUTROPHILS PERCENT AUTO 72 % (41-73); Platelet Count 102 K/mm3 (150-400); RDW Coefficient Variation 15.5 % (11.7-14.2); RDW Standard Deviation 51.6 fL (35.1-46.3); Red Blood Cell Count 3.57 M/mm3 (4.30-5.90); White Blood Cell Count 6.95 K/mm3 (4.00-11.30)
[2022-11-26 04:24] LABS: Bun/Creatinine Ratio 23.7 (12.0-20.0); Calcium, Blood 7.6 mg/dL (8.5-10.1); Creatinine, Blood 3.16 mg/dL (0.60-1.20)
--- NOTE | 2022-11-26 05:33 | NUR ---
SHIFT SUMMARY PT IS A&OX4, IND MOVING IN THE BED, SBA FOR LINE MANAGMENT, BEEN AFIB 60'S-70'S ON TELE, AND BP IS STABLE. PT C/O SOB THIS SHIFT AND WAS PLACED ON 1L NC FOR COMFORT. SP02 >95% ON ROOM AIR AND 1LNC. HIS SOB HAS SUBSIDED SINCE PUT ON THE OXYGEN. PT DENIES ANGINA, N/V/D, AND PAIN. BED IS LOW AND CALL LIGHT IS IN REACH. WILL CONTINUE TO MONITOR UNTIL SHIFT REPORT IS GIVEN TO THE ONCOMING APARNA RN. SEE NOTES FOR ANY UPDATES.
--- NOTE | 2022-11-26 07:49 | NUR ---
This morning the pt is awake, lying in bed, HOB elevated. He is alert, oriented and pleasantly conversant. Ambulatory to the bathroom independently while staff were in the room with him. He states that he feels that his breathing is better. Soft wheezing auscultated throughout the lung ly, diminished in the bases. He has just finished receiving a breathing treatment. States that he really hopes to be released to go home today.
--- NOTE | 2022-11-26 11:50 | NUR ---
Dr. Victor rounded on the patient; states that he will be discharging the patient now.
--- NOTE | 2022-11-26 12:45 | NUR ---
Pt's arrived, and discharge instructions were reviewed with both of them. states that she would prefer to call to make the appointments with PCP and nephrology provider since she has a lot of other appointments on the calendar. Questions were answered. Pt was taken out in wheelchair by SHRUTHI Morales with pt's accompanying.
== END 2022-11-26 12:50 | disposition home or self-care (01) | DRG 291 ==
LOC: ER 11:59 → PCU 16:07
PROVIDERS: Internal Medicine; Student in an Organized Health Care Education/Training Program; ADMIT Internal Medicine
PROC: 5A09357 Assistance with Respiratory Ventilation, Less than 24 Consecutive Hours, Continuous Positive Airway Pressure (ICD-10-PCS; principal; 2022-11-22)
DX: I13.2 Hypertensive heart and chronic kidney disease with heart failure and with stage 5 chronic kidney disease, or end stage renal disease (principal); I50.43 Acute on chronic combined systolic (congestive) and diastolic (congestive) heart failure; J96.22 Acute and chronic respiratory failure with hypercapnia; N17.9 Acute kidney failure, unspecified; N18.5 Chronic kidney disease, stage 5; J44.1 Chronic obstructive pulmonary disease with (acute) exacerbation; Q60.0 Renal agenesis, unilateral; I48.91 Unspecified atrial fibrillation; Z66 Do not resuscitate; I25.10 Atherosclerotic heart disease of native coronary artery without angina pectoris; I25.5 Ischemic cardiomyopathy; E78.5 Hyperlipidemia, unspecified; Z20.822 Contact with and (suspected) exposure to COVID-19; Z91.041 Radiographic dye allergy status; Z79.82 Long term (current) use of aspirin; Z79.01 Long term (current) use of anticoagulants; Z79.899 Other long term (current) drug therapy; Z95.5 Presence of coronary angioplasty implant and graft; Z79.02 Long term (current) use of antithrombotics/antiplatelets; Z79.51 Long term (current) use of inhaled steroids; Z79.52 Long term (current) use of systemic steroids; I25.2 Old myocardial infarction; Z90.49 Acquired absence of other specified parts of digestive tract; Z87.891 Personal history of nicotine dependence; Z98.890 Other specified postprocedural states; Z95.828 Presence of other vascular implants and grafts
CPT/HCPCS: 0241U; 36415; 71045; 80048; 80053; 82803; 83735; 83880; 84145; 84484; 85025; 85027; 93005; 93010; 93306; 94640; 94644; 94664; 94760; 94762; 96365; 96375; 99285-25; A9270; J0696; J1644; J1940; J2930

== ENCOUNTER 2022-12-09 20:44 | Inpatient (IN) | payer OTHER ==
[~2022-12-09] VITALS: Ht 180.3 cm; Wt 81.8 kg
[~2022-12-09 20:44] MED LIST changes: +DIPH50 PO; +[UNRECOGNIZED DRUG - CODE] SC
[2022-12-09 22:04] LABS: BASOPHILS ABSOLUTE AUTO 0.01 K/mm3 (0.00-0.23); BASOPHILS PERCENT AUTO 0 % (0-2); EOSINOPHILS ABSOLUTE AUTO 0.09 K/mm3 (0.00-0.68); EOSINOPHILS PERCENT AUTO 1 % (0-6); Hematocrit 32.1 % (37.0-53.0); Hemoglobin 9.9 g/dL (13.5-17.5); IMMATURE GRAN ABSOLUTE AUTO 0.02 K/mm3 (0.00-0.10); IMMATURE GRAN PERCENT AUTO 0 % (0-1); LYMPHOCYTES ABSOLUTE AUTO 0.59 K/mm3 (0.84-5.20); LYMPHOCYTES PERCENT AUTO 9 % (21-46); MONOCYTES ABSOLUTE AUTO 0.54 K/mm3 (0.16-1.47); MONOCYTES PERCENT AUTO 8 % (4-13); Mean Corpuscular HGB 28.6 pg (26.0-34.0); Mean Corpuscular HGB Conc 30.8 g/dL (31.5-36.5); Mean Corpuscular Volume 93 fL (80-100); Mean Platelet Volume 10.6 fL (9.1-12.4); NEUTROPHILS PERCENT AUTO 81 % (41-73); Platelet Count 108 K/mm3 (150-400); RDW Coefficient Variation 15.9 % (11.7-14.2); RDW Standard Deviation 54.1 fL (35.1-46.3); Red Blood Cell Count 3.46 M/mm3 (4.30-5.90); White Blood Cell Count 6.55 K/mm3 (4.00-11.30)
[2022-12-09 22:11] LABS: Albumin, Blood 2.7 g/dL (3.4-5.0); Albumin/Globulin Ratio 0.9 (0.8-1.8); Bilirubin, Total 0.7 mg/dL (0.1-1.0); Bun/Creatinine Ratio 15.2 (12.0-20.0); Calcium, Blood 8.4 mg/dL (8.5-10.1); Creatinine, Blood 2.57 mg/dL (0.60-1.20); Globulin, Blood 3.1 g/dL (2.2-4.0); Magnesium, Blood 2.3 mg/dL (1.6-2.4); Potassium, Blood 4.5 mmol/L (3.5-5.5); Total Protein, Blood 5.8 g/dL (6.4-8.2)
[2022-12-09 22:55] LABS: Base Excess Venous -3.5 mmol/L; Bicarbonate Venous 21.5 mmol/L (24.0-30.0); PCO2 Venous 46.3 mmHg (38-42)
--- NOTE | 2022-12-10 00:45 | NUR ---
PT ARRIVES TO ICU 14 VIA GURNEY FROM ER, STANDS TO TRANSFER TO BED WITH STANDBY ASSIST AND STEADY GAIT, DOES ADMIT TO FEELING WEAK, STATES THAT BREATHING FEELS MUCH IMPROVED FROM ARRIVAL TO ER. DENIES DIZZINESS/VERTIGO, DENIES CP/PRESSURE. STATES THAT HX HAS NOT CHANGED SINCE ADMISSION ON JAUNUARY 7 OF THIS YEAR, ALSO STATES THAT HIS SPOUSE MANAGES ALL OF HIS HOME MEDICATIONS AND THAT STAFF WILL HAVE TO ADDRESS THESE WITH HER HOWEVER SHE IS HOME SLEEPING OF THIS TIME, HE REQUESTS TO REVIEW HOME MEDICATION LIST WITH SPOUSE LATER THIS AM WHEN SHE IS AWAKE. PLAN IS TO START CARDIZEM GTT
[2022-12-10] MEDS ORDERED: BENADRYL25 M1 PO (01:31)
--- NOTE | 2022-12-10 05:17 | NUR ---
PT WAS ADMITTED FROM ER THIS SHIFT FOR CHF AND AFIB WITH RVR, REPORTED BREATHING FEELING MUCH IMPROVED ON ARRIVAL TO UNIT, HEART RATES INITIALLY UP TO THE 160S, CARDIZEM GTT WAS STARTED AND TITRATED HIGH 15 MG/HR AND HAS SINCE BEEN TITRATED DOWN TO 5 MG/HR, CURRENT RATE IS 80S, PRESSURES IMPROVED BUT REMAIN HYPERTENSIVE AT 150S/90S CURRENTLY. PT REPOSITIONS SELF WELL IN BED, USES CALL LIGHT APPROPRIATELY TO MAKE NEEDS KNOWN.
[2022-12-10 07:42] LABS: Bun/Creatinine Ratio 15.1 (12.0-20.0); Calcium, Blood 8.6 mg/dL (8.5-10.1); Creatinine, Blood 2.71 mg/dL (0.60-1.20); Potassium, Blood 4.8 mmol/L (3.5-5.5)
[2022-12-10 09:01] LABS: PCO2 Arterial 34.9 mmHg (35-45); PO2 Arterial 84.4 mmHg (80-100); pH Blood Arterial 7.39 (7.35-7.45)
--- NOTE | 2022-12-10 09:20 | NUR ---
Spoke w/ Dr. Morataya regarding admin of Lasix IVP and his current creatinine. She advised it was ok to admin the IV lasix as pt was here for a CHF exacerbation and needed to continue his diuresis.
--- NOTE | 2022-12-10 09:40 | NUR ---
Assumed care for pt at 0700. On Cardizem gtt @ 5 mg/hr for A-Fib w/ RVR. Pt on 3.5 lpm o2 via NC. He is A&Ox4, and stnadyb assist when using urinal. Weighed pt using a standing scale due to pt advising he normally weighs between 165-175 lbs; weight from the standing scale was 81.2 kg. Pt ate breakfast and has SCDs in place.
--- NOTE | 2022-12-10 13:30 | NUR ---
Cardizem gtt stopped.
--- NOTE | 2022-12-10 16:07 | NUR ---
Telephone report received from [facility]. Waiting for room to be cleaned and then pt will transfer to PCU 5.
--- NOTE | 2022-12-10 16:19 | NUR ---
Called report to [facility] for PCU #5. Room is being cleaned, she will notify once room is clean and pt can be moved.
--- NOTE | 2022-12-10 18:27 | NUR ---
Pt arrived from ICU. Denies any discomfort or pain at this time. Atrial fibrillation noted 88 bpm by telemetry. Wearing oxygen at 2 l/min delivery, spo2 99%. Vital signs stable. Respirations as rest are even, unlabored. Carrying on pleasant conversation. Oxygen taken off and spo2 is maintaining at 97% on room air. Pt states no bowel movement since Thursday. States he has been having small rabbit pellets stools for the past 2 weeks, since starting inhalers at that time. Voiding at bedside, uses urinal pt states. SCDs on.
--- NOTE | 2022-12-10 19:15 | NUR ---
ASSESSMENT/ASSUMED CARE PT SITTING UP IN BED WATCHING TV. DENIES PAIN OR DISCOMFORT. LUNGS CLEAR BUT DECREASED IN THE BASES ON ROOMAIR. RESP EVEN AND NONLABORED. SOB NOTED WITH ACTIVITY, BUT RESOLVES WITH REST. HEART RATE IRREGULAR AFIB IN THE 70'S. BP STABLE. 2+ PITTING LOWER EXT EDEMA NOTED. SCD'S ON. BT+ ABD SOFT AND NONTENDER. DENIES N/V AT THIS TIME. PT VOIDED CLEAR YELLOW URINE. UP TO THE BATHROOM WITH STANDBY ASSIST. HAD SMALL SOFT LIGHT BROWN HARD FORMED STOOL. BACK TO BED. GAIT STEADY. IV 20G SALINE LOCKED TO LEFT WRIST. FLUSHED WITHOUT DIFFICULTY. SITE CLEAR.
[2022-12-11 03:16] LABS: Hematocrit 30.3 % (37.0-53.0); Hemoglobin 9.5 g/dL (13.5-17.5); Mean Corpuscular HGB 28.5 pg (26.0-34.0); Mean Corpuscular HGB Conc 31.4 g/dL (31.5-36.5); Mean Corpuscular Volume 91 fL (80-100); Mean Platelet Volume 10.4 fL (9.1-12.4); Platelet Count 127 K/mm3 (150-400); RDW Coefficient Variation 15.8 % (11.7-14.2); RDW Standard Deviation 52.9 fL (35.1-46.3); Red Blood Cell Count 3.33 M/mm3 (4.30-5.90); White Blood Cell Count 8.05 K/mm3 (4.00-11.30)
[2022-12-11 03:37] LABS: Albumin, Blood 2.8 g/dL (3.4-5.0); Anion Gap 8 mmol/L (6-16); Blood Urea Nitrogen 51 mg/dL (8-24); Bun/Creatinine Ratio 17.5 (12.0-20.0); CO2, Blood 24 mmol/L (21-32); Calcium, Blood 8.4 mg/dL (8.5-10.1); Chloride, Blood 107 mmol/L (98-108); Creatinine, Blood 2.91 mg/dL (0.60-1.20); Glomerular Filtration Rate 21 (60-); Glucose, Blood 146 mg/dL (70-99); Phosphorus, Blood 4.2 mg/dL (2.5-4.9); Potassium, Blood 4.6 mmol/L (3.5-5.5); Sodium, Blood 139 mmol/L (136-145)
--- NOTE | 2022-12-11 07:25 | NUR ---
Pt awakens easily at time of vital signs. He is alert, oriented and denies any discomfort. States he is feeling "a lot better". Said that he stood at side of bed about an hour ago to void. NO supplemental oxygen in use, spo2 95% on room air. Lung sounds are much clearer than yesterday evening; occasional wheeze ausculated, and diminished sounds in the bases posteriorly, but no rhonchi noted. Atrial fibrillation at 80 bpm noted by telemetry monitoring. Pitting edema 2+ noted on ankles and feet bilaterally, and in some places where the SCDs were not compressing on the tibia. SCDs removed and CHRISTIAN hose placed at this time. Pt strongly encouraged to get OOB for breakfast, to sit in the recliner. Declined at this time but encouraged him to get up when the meal arrives.
--- NOTE | 2022-12-11 10:50 | NUR ---
Call to to update and verify home medication list. No answer to either phone number; I left a voice message.
--- NOTE | 2022-12-11 16:07 | NUR ---
Pt states that he had some sharp pain in the left upper abdominal quadrant, and umbilical area that came and went quickly. Encouraged his activity to increase. He declined OOB to chair for lunch, but did get up for breakfast and had a small BM this morning. He was agreeable to start ambulating to the bathroom for toileting instead of just using the urinal at the bedside.
--- NOTE | 2022-12-11 17:51 | NUR ---
Juan has been alert and oriented this shift, without dypsnea but low tolerance for activity. He tired after being up in the chair after breakfast. Declined OOB to chair for lunch nor for dinner. He was agreeable to the idea of ambulating to the bathroom for toileting to increase his activity level. He is not requiring any supplemental oxygen at rest nor with activity. Occasional moist sounding cough, non-productive. Lung sounds are without crackles, only transient wheeziing noted. Atrial fibrillation 70-90 bpm noted by telemetry monitoring. Bowel sounds active. Pt had a bowel movement this morning. Pitting edema bilaterally lower extremities, 2+ from knees to toes. CHRISTIAN hose are in place. Initiated fluid restriction this evening per new order 1000cc/ 24 hours.
--- NOTE | 2022-12-12 04:50 | NUR ---
SHIFT SUMMARY: PT ALERT AND ORIENTED X4, ABLE TO FOLLOW COMMANDS AND MAKE NEEDS KNOWN. COOPERATIVE WITH CARE. BP STABLE, HR AFIB 70'S, AFEBRILE, SATS >98% ON ROOM AIR. RESPIRATIONS EVEN AND UNLABORED, WHEEZES NOTED IN LOWER BASES. PT WITH NON PRODUCTIVE COUGH. NO COMPLAINTS OF CP/PRESSURE THROUGHOUT THE NIGHT. +2 EDEMA NOTED IN BLE, CHRISTIAN HOSE IN PLACE. PT ABLE TO AMBULATE TO AND FROM BATHROOM IND. NO BM THIS SHIFT, REFUSED PO COLACE, EDUCATION PROVIDED. BED IN LOW, CALL LIGHT IN REACH, WILL REPORT TO ONCOMING RN.
[2022-12-12 05:05] LABS: Albumin, Blood 2.6 g/dL (3.4-5.0); Anion Gap 7 mmol/L (6-16); Blood Urea Nitrogen 67 mg/dL (8-24); CO2, Blood 27 mmol/L (21-32); Calcium, Blood 8.2 mg/dL (8.5-10.1); Chloride, Blood 105 mmol/L (98-108); Creatinine, Blood 3.04 mg/dL (0.60-1.20); Glomerular Filtration Rate 20 (60-); Glucose, Blood 87 mg/dL (70-99); Potassium, Blood 4.1 mmol/L (3.5-5.5); Sodium, Blood 139 mmol/L (136-145)
--- NOTE | 2022-12-12 07:21 | NUR ---
ASSUMED CARE: PT RESTING QUIETLY IN IN BED. AFIB IN 80S ON TELE. NO ACUTE NEEDS OR CONCERNS AT THIS TIME.
--- NOTE | 2022-12-12 11:40 | NUR ---
Pt resting in bed and denies pain at this time. Pt appears weak and fatigued. Mild dyspnea noted as well. Pt reports living at home with his . No children of his own but reports adopting a daughter from current marriage. Listened as Pt reports losing his first to cancer and was for over 30 years. He reports being to his current for almost [address] Morataya in to evaluate and reviews plan of care with Pt. Plan to consult Dr Patel regarding Kidney function. After Dr Morataya leaves this RN engages in therapeutic discussion regarding wishes for code status. Educated on life sustaining treatments inlcuding risk factors and implications of CPR. Pt reports wishes are to remain a full code. Continued supportive visit. Palliative Care will remain available
--- NOTE | 2022-12-12 13:44 | NUR ---
DR URBAN PERFORMED TELECONSULT WITH PT. OT WORKED WITH PT. [employer] HAS BEEN WORKING TO GET PT UP TO CHAIR THIS SHIFT AND TELLING HIM HE HAS TO STAY IN CHAIR FOR AT LEAST HALF HOUR AT A TIME. NO ACUTE NEEDS AT THIS TIME.
--- NOTE | 2022-12-12 17:28 | NUR ---
SHIFT SUMMARY: PT HAS BEEN UP IN CHAIR FOR MEALS THIS SHIFT. DR URBAN CONSULTED VIA TELE CONSULT. RENAL ULTRASOUND COMPLETED THIS SHIFT. PT NOW MEDICAL STATUS, WITHOUT TELE. NO ACUTE NEEDS OR CONCERNS AT THIS TIME.
[2022-12-13 03:48] LABS: Hematocrit 31.9 % (37.0-53.0); Hemoglobin 10.1 g/dL (13.5-17.5)
[2022-12-13 04:04] LABS: Magnesium, Blood 2.1 mg/dL (1.6-2.4)
[2022-12-13 04:05] LABS: Albumin, Blood 2.5 g/dL (3.4-5.0); Anion Gap 7 mmol/L (6-16); Blood Urea Nitrogen 68 mg/dL (8-24); Bun/Creatinine Ratio 21.9 (12.0-20.0); CO2, Blood 27 mmol/L (21-32); Calcium, Blood 8.4 mg/dL (8.5-10.1); Chloride, Blood 106 mmol/L (98-108); Creatinine, Blood 3.11 mg/dL (0.60-1.20); Glomerular Filtration Rate 20 (60-); Glucose, Blood 98 mg/dL (70-99); Potassium, Blood 3.9 mmol/L (3.5-5.5); Sodium, Blood 140 mmol/L (136-145)
--- NOTE | 2022-12-13 04:58 | NUR ---
SHIFT SUMMARY ASSUMED CARE OF PT AT 1900. PT IS A/OX4. TELIDA. HEART SOUNDS IRREGULAR, PT HAS AFIB. LUNG SOUNDS HAVE SLIGHT CRACKLES AT THE BASES. PT INDEPENDENT TO BATHROOM. USED URINAL. STRICT I&O. NO ACUTE EVENTS. PT SLEPT T/O THE NIGHT.
[2022-12-13] MEDS ORDERED: Bumetanide2 MG PO (12:21)
--- NOTE | 2022-12-13 13:29 | NUR ---
DISCHARGE UPDATE DISCHARGE PACKET GONE OVER WITH P AT 1325, PT DISCHARGED AT 1329 VIA WHEELCHAIR AND ON RA. PT PERSONAL BELONGINGS PREVIOUSLY REMOVED FROM ROOM BY PT . DISCHARGE PACKET WITH PT DURING DISCHARGE. PT ABLE TO TRANSFER SELF TO AND FROM WHEELCHAIR, TOLERATED WELL.
== END 2022-12-13 13:29 | disposition home health service (06) | DRG 291 ==
LOC: ER 20:44 → ERHOLD 12-10 00:14 → ICUW 12-10 00:14 → PCU 12-10 00:14 → ICUW 12-10 00:38 → PCU 12-10 18:15
PROVIDERS: Internal Medicine; Internal Medicine Nephrology; Student in an Organized Health Care Education/Training Program; ADMIT Internal Medicine
DX: I13.0 Hypertensive heart and chronic kidney disease with heart failure and stage 1 through stage 4 chronic kidney disease, or unspecified chronic kidney disease (principal); I50.43 Acute on chronic combined systolic (congestive) and diastolic (congestive) heart failure; J96.01 Acute respiratory failure with hypoxia; J44.1 Chronic obstructive pulmonary disease with (acute) exacerbation; N18.4 Chronic kidney disease, stage 4 (severe); Q60.0 Renal agenesis, unilateral; N17.9 Acute kidney failure, unspecified; N25.81 Secondary hyperparathyroidism of renal origin; I48.91 Unspecified atrial fibrillation; I25.10 Atherosclerotic heart disease of native coronary artery without angina pectoris; D63.1 Anemia in chronic kidney disease; E88.09 Other disorders of plasma-protein metabolism, not elsewhere classified; N40.0 Benign prostatic hyperplasia without lower urinary tract symptoms; E78.5 Hyperlipidemia, unspecified; I71.21 Aneurysm of the ascending aorta, without rupture; I25.5 Ischemic cardiomyopathy; I71.40 Abdominal aortic aneurysm, without rupture, unspecified; Z95.5 Presence of coronary angioplasty implant and graft; Z98.890 Other specified postprocedural states; Z91.041 Radiographic dye allergy status; Z79.899 Other long term (current) drug therapy; Z79.02 Long term (current) use of antithrombotics/antiplatelets; Z79.51 Long term (current) use of inhaled steroids; I25.2 Old myocardial infarction; Z90.49 Acquired absence of other specified parts of digestive tract; Z87.891 Personal history of nicotine dependence; Z95.828 Presence of other vascular implants and grafts
CPT/HCPCS: 36415; 36600; 71045; 76770; 80048; 80053; 80069; 82803; 82947; 83735; 83880; 84145; 85014; 85018; 85025; 85027; 93005; 93010; 94640; 94644; 94664; 94760; 96374; 96375; 97110; 97162; 97166; 97535; 99285-25; A9270; J0881; J1940; J2930

== ENCOUNTER 2022-12-30 22:19 | Inpatient (IN) | payer OTHER ==
[~2022-12-30] VITALS: Ht 180.3 cm; Wt 79.5 kg
[~2022-12-30 22:19] MED LIST changes: +BENADRYL25 M1 PO; +Bumetanide2 MG PO
[2022-12-30 22:49] LABS: BASOPHILS ABSOLUTE AUTO 0.02 K/mm3 (0.00-0.23); BASOPHILS PERCENT AUTO 0 % (0-2); EOSINOPHILS ABSOLUTE AUTO 0.07 K/mm3 (0.00-0.68); EOSINOPHILS PERCENT AUTO 1 % (0-6); Hemoglobin 10.6 g/dL (13.5-17.5); IMMATURE GRAN ABSOLUTE AUTO 0.01 K/mm3 (0.00-0.10); IMMATURE GRAN PERCENT AUTO 0 % (0-1); LYMPHOCYTES ABSOLUTE AUTO 1.16 K/mm3 (0.84-5.20); LYMPHOCYTES PERCENT AUTO 17 % (21-46); MONOCYTES ABSOLUTE AUTO 0.57 K/mm3 (0.16-1.47); MONOCYTES PERCENT AUTO 8 % (4-13); Mean Corpuscular HGB 28.6 pg (26.0-34.0); Mean Corpuscular HGB Conc 31.2 g/dL (31.5-36.5); Mean Corpuscular Volume 92 fL (80-100); Mean Platelet Volume 10.6 fL (9.1-12.4); NEUTROPHILS ABSOLUTE AUTO 5.19 K/mm3 (1.96-9.15); NEUTROPHILS PERCENT AUTO 74 % (41-73); Platelet Count 152 K/mm3 (150-400); RDW Standard Deviation 50.3 fL (35.1-46.3); White Blood Cell Count 7.02 K/mm3 (4.00-11.30)
[2022-12-30 23:09] LABS: Albumin/Globulin Ratio 0.8 (0.8-1.8); Bilirubin, Total 0.7 mg/dL (0.1-1.0); Bun/Creatinine Ratio 15.5 (12.0-20.0); Calcium, Blood 8.5 mg/dL (8.5-10.1); Creatinine, Blood 2.58 mg/dL (0.60-1.20); Globulin, Blood 3.6 g/dL (2.2-4.0); Potassium, Blood 4.4 mmol/L (3.5-5.5); Total Protein, Blood 6.6 g/dL (6.4-8.2)
[2022-12-30] MEDS ORDERED: AMLO10 PO (23:38)
[2022-12-30] MEDS ORDERED: OXYC5 PO (23:38)
[2022-12-30] MEDS ORDERED: Aspir 8181 MG PO (23:40)
--- NOTE | 2022-12-31 06:04 | NUR ---
SHIFT SUMMARY PT ALERT AND ORIENTED X 4. HR STABLE. BP STABLE. NO CP OR PRESSURE. PT CURRENLTY ON 5 L VIA NC. PT UNABLE TO VOID, BLADDER SCAN DONE SHOWING OVER 600 ML OF URINE IN BLADDER. ORDERS FOR DUNLAP TO BE PLACED. PT REPORTS CONSTIPATION, MD NOTIFIED AND ORDERS TO BE PLACED. PT ABLE TO PASS TWO SMALL/MEDIUM BOWEL MOVEMENTS AND REPORTS RELIEF. STAND BY ASSIST TO COMMODE. PT USES CALL LIGHT APPROPRIATELY. CALL LIGHT WITHIN REACH. WILL CONT TO MONITOR UNTIL REPORT GIVEN TO DAYSHIFT RN.
[2022-12-31 06:45] LABS: BASOPHILS ABSOLUTE AUTO 0.02 K/mm3 (0.00-0.23); BASOPHILS PERCENT AUTO 0 % (0-2); EOSINOPHILS ABSOLUTE AUTO 0.03 K/mm3 (0.00-0.68); EOSINOPHILS PERCENT AUTO 1 % (0-6); Hematocrit 32.9 % (37.0-53.0); IMMATURE GRAN ABSOLUTE AUTO 0.02 K/mm3 (0.00-0.10); IMMATURE GRAN PERCENT AUTO 0 % (0-1); LYMPHOCYTES ABSOLUTE AUTO 0.66 K/mm3 (0.84-5.20); LYMPHOCYTES PERCENT AUTO 12 % (21-46); MONOCYTES ABSOLUTE AUTO 0.72 K/mm3 (0.16-1.47); MONOCYTES PERCENT AUTO 13 % (4-13); Mean Corpuscular HGB 28.2 pg (26.0-34.0); Mean Corpuscular HGB Conc 30.4 g/dL (31.5-36.5); Mean Corpuscular Volume 93 fL (80-100); Mean Platelet Volume 10.8 fL (9.1-12.4); NEUTROPHILS ABSOLUTE AUTO 4.14 K/mm3 (1.96-9.15); NEUTROPHILS PERCENT AUTO 74 % (41-73); Platelet Count 138 K/mm3 (150-400); RDW Coefficient Variation 14.8 % (11.7-14.2); RDW Standard Deviation 51.7 fL (35.1-46.3); Red Blood Cell Count 3.54 M/mm3 (4.30-5.90); White Blood Cell Count 5.59 K/mm3 (4.00-11.30)
[2022-12-31 07:06] LABS: Albumin, Blood 2.8 g/dL (3.4-5.0); Albumin/Globulin Ratio 0.8 (0.8-1.8); Bilirubin, Total 0.7 mg/dL (0.1-1.0); Bun/Creatinine Ratio 14.7 (12.0-20.0); CPK Creatine Kinase 30 U/L (39-308); Calcium, Blood 8.3 mg/dL (8.5-10.1); Creatinine, Blood 2.66 mg/dL (0.60-1.20); Globulin, Blood 3.6 g/dL (2.2-4.0); Potassium, Blood 4.2 mmol/L (3.5-5.5); Total Protein, Blood 6.4 g/dL (6.4-8.2)
--- NOTE | 2022-12-31 09:35 | NUR ---
AM NOTE: PATIENT ALERT AND ORIENTED X4. [place] AND AT TIMES SLOWER TO RESPOND. OVERALL WEAK. SBA TO BSC. DENIES N/T. PERRLA. BILATERAL CLOSED CIRCUIT SCREEN WATCHER STRENGTH AND EXTREMITY MOVEMENTS. TELE SHOWING AFIB WITH HR 90'S. DENIES CHEST PAIN/PRESSURE/PALPITATIONS. BP STABLE. EDEMA NOTED THROUGHOUT. 3+ EDEMA TO LLE, 2+ EDEMA TO RLE. IV LASIX GIVEN THIS AM. CARDIAC DIET IN PLACE. DUNLAP CATH DRAINING YELLOW URINE. PATIENT COMPLAINS OF CONSTIPATION EARLY THIS AM. ABLE TO HAVE LARGE BM X1 IN BSC. SWALLOW WNL. ON 3-4L NASAL CANNULA THIS AM SATING MID 90'S. STATES HIS SOB HAS IMPROVED SINCE ADMIT. OCCASIONAL MOIST COUGH, UNABLE TO PRODUCE ANY SPUTUM WHEN COUGHING. LUNGS SOUNDING COARSE AND DIM IN BASES. HERNIA NOTED TO ABDOMIN. UP WITH SBA. EATING BREAKFAST AT THIS TIME. IV'S FLUSHED AND SALINE LOCKED. WILL CONTINUE TO MONITOR.
--- NOTE | 2022-12-31 14:04 | NUR ---
CHRISTINE AT BEDSIDE, THIS RN PROVIDED UPDATE. AFTERNOON VITAL STABLE. PATIENT DENIES NEEDS. WILL CONTINUE TO MONITOR.
[2022-12-31 15:03] LABS: CPK Creatine Kinase 29 U/L (39-308)
--- NOTE | 2022-12-31 19:24 | NUR ---
SHIFT SUMMARY: NO ACUTE CHANGES, SEE PREVIOUS NOTES FOR UPDATES. ON ROOM AIR SATING MID 90'S. TELE CONTINUES TO SHOW AFIB WITH HR 70-80'S. EATING WNL. DUNLAP CATH CONTINUES TO DRAIN CLEAR/YELLOW URINE. SBA TO BSC, 2 BOWEL MOVEMENTS THIS SHIFT. CONTINUES TO HAVE COARSE SOUNDING COUGH. CALL LIGHT IN REACH. WILL CONTINUE TO MONITOR AND REPORT OFF TO ONCOMING RN.
--- NOTE | 2023-01-01 05:46 | NUR ---
MILL LABORER SUMMARY ASSUMED CARE OF THE PT AT 1900. HE IS ALERT AND ORIENTED X4, COOPERATIVE WITH CARE. PT BEGAN COMPLAINING OF 2-3/10 LEFT-SIDED CHEST PAIN THAT WAS NOT WORSE WITH PALPATION BUT IMPROVED WITH SITTING THE HEAD OF THE BED UP. HE HAS A HX OF CHF AND REPORTED THAT THIS PAIN HAS BEEN OCCURRING AT HOME FOR 2-[address] URBAN WAS CONTACTED AND AN EKG WAS OBTAINED WITH NO CHANGES. PT REPORTED TAKING OXYCODONE AT HOME FOR THIS PAIN SO WAS GIVEN NORCO WITH RESOLUTION OF THE PAIN. HE HAS 3+ SWELLING TO THE LEFT LOWER EXTREMITY AND 2+ SWELLING TO THE RIGHT LOWER EXTREMITY. HE CONTINUES TO HAVE COARSE BREATH SOUNDS WITH MINIMALLY PRODUCTIVE COUGH. PT HAS BEEN AFIB ON TELE IN THE 90S TO 100S. HE REQUIRED 2L BY NC DURING SLEEP DUE TO DESATURATION INTO THE 80S.
[2023-01-01 06:08] LABS: Albumin, Blood 2.6 g/dL (3.4-5.0); Anion Gap 5 mmol/L (6-16); Blood Urea Nitrogen 43 mg/dL (8-24); Bun/Creatinine Ratio 15.8 (12.0-20.0); CO2, Blood 26 mmol/L (21-32); Calcium, Blood 8.3 mg/dL (8.5-10.1); Chloride, Blood 113 mmol/L (98-108); Creatinine, Blood 2.72 mg/dL (0.60-1.20); Glomerular Filtration Rate 23 (60-); Glucose, Blood 113 mg/dL (70-99); Phosphorus, Blood 4.3 mg/dL (2.5-4.9); Potassium, Blood 4.6 mmol/L (3.5-5.5); Sodium, Blood 144 mmol/L (136-145)
--- NOTE | 2023-01-01 09:53 | NUR ---
AM NOTE: PATIENT ALERT AND ORIENTED X4. HARD OF HEARING. ANXIOUS TO GO HOME TODAY. SBA TO BSC WITH WALKER. DENIES N/T. ON ROOM AIR SATING MID 90'S. OCCASIONAL MOIST SOUNDING COUGH. LUNGS SOUNDING CLEAR. UNABLE TO PRODUCE ANY SPUTUM WHEN COUGHING. PT STATES HIS BREATHING HAS IMPROVED. IV LASIX GIVEN THIS AM. TELE SHOWING AFIB WITH HR 60-80'S. BP STABLE. DENIES CHEST PAIN/PRESSURE. PPP. EDEMA NOTED TO BLE, 2+ IN LLE AND 1+ IN RLE. DENIES ABDMOMINAL PAIN/NAUSEA. EATING WNL. HISTORY OF LARGE HERNIA. DUNLAP CATH IN PLACE DRAINING CLEAR/YELLOW URINE. PATIENT STATES HE HAS NO ISSUES VOIDING AT HOME. CALL LIGHT IN REACH. DENIES NEEDS AT THIS TIME. WILL CONTINUE TO MONITOR.
--- NOTE | 2023-01-01 11:00 | NUR ---
FLUTTER VALVE PRODIVED TO PATIENT. THIS RN EDUCATED ON USE. DUNLAP CATH REMOVED WNL.
[2023-01-01] MEDS ORDERED: AZIT500 PO (11:45)
[2023-01-01] MEDS ORDERED: BUME2 PO (11:47)
[2023-01-01] MEDS ORDERED: VISBIOME 112.51 EACH PO (11:47)
[2023-01-01] MEDS ORDERED: CEFD300 PO (11:48)
[2023-01-01] MEDS ORDERED: IPRAT-ALBUT 0.5-3 ML INH (11:49)
--- NOTE | 2023-01-01 15:49 | NUR ---
DISCHARGE: NO ACUTE CHANGES, SEE PREVIOUS NOTE. PATIENT'S CHRISTINE AT BEDSIDE FOR DISCHARGE. VITAL SIGNS REMAIN STABLE. PATIENT VOIDING IN URINAL POST DUNLAP REMOVAL. REMAINS ON ROOM AIR SATING ABOVE 95%. NO TELE EVENTS. IV'S REMOVED WNL. THIS RN EDUCATED ON HEART FAILURE SIGNS AND SYMPTOMS, NEW MEDICATIONS, FLUTTER VALVE, FOLLOW UP APPOINTMENTS WITH PCP AND NEPHROLOGY, RENAL LABS TO GET DONE WITH PCP F/U, AND TO ACRYLIC FABRICATOR MEDICATIONS AT [facility]. ALREADY TO [facility] AND ABLE TO ACRYLIC FABRICATOR ALL MEDICATIONS BESIDES IPATROPIUM/ALBUTEROL. STATES THE [facility] DID NOT HAVE ANY IN STOCK. THIS RN OFFERED TO CALL INTO A DIFFERENT PHARMACY. ASKED THIS RN TO CALL [facility]. CALL PLACED TO [facility] AND THIS RN INFORMED THIS MEDICATION WAS BACK ORDERED AND THAT THERE WAS A [place] [place] SHORTAGE. THIS RN OFFERED TO CALL BIGGER CHAIN PHARMACIES SUCH [facility] OR [facility]. DENIED THIS. STATES THAT [facility] OFFERED A SUBSTITUTE BUT NOT WILLING TO WAIT FOR MEDICATION TO BE FILLED. STATES "[facility] AND [facility] AM TAKING THIS TO [facility] RE[facility], I WILL BE THE ONE TO SHUT THEM DOWN". PATIENT AND ABLE TO VERBALIZE ALL EDUCATION AND INFORMATION ABOUT NEW PRESCRIPTIONS. PATIENT LEFT UNIT WITH ALL PERSONAL BELONGINGS VIA WHEELCHAIR.
== END 2023-01-01 14:47 | disposition home or self-care (01) | DRG 291 ==
LOC: ER 22:19 → PCU 22:20
PROVIDERS: Internal Medicine; Student in an Organized Health Care Education/Training Program; ADMIT Internal Medicine
DX: I13.0 Hypertensive heart and chronic kidney disease with heart failure and stage 1 through stage 4 chronic kidney disease, or unspecified chronic kidney disease (principal); I50.43 Acute on chronic combined systolic (congestive) and diastolic (congestive) heart failure; J18.9 Pneumonia, unspecified organism; J96.01 Acute respiratory failure with hypoxia; N18.4 Chronic kidney disease, stage 4 (severe); Q60.0 Renal agenesis, unilateral; J44.0 Chronic obstructive pulmonary disease with (acute) lower respiratory infection; J98.11 Atelectasis; E78.5 Hyperlipidemia, unspecified; I25.5 Ischemic cardiomyopathy; I48.91 Unspecified atrial fibrillation; I25.10 Atherosclerotic heart disease of native coronary artery without angina pectoris; N40.0 Benign prostatic hyperplasia without lower urinary tract symptoms; Z86.79 Personal history of other diseases of the circulatory system; Z98.890 Other specified postprocedural states; Z95.5 Presence of coronary angioplasty implant and graft; Z91.041 Radiographic dye allergy status; Z79.899 Other long term (current) drug therapy; Z79.02 Long term (current) use of antithrombotics/antiplatelets; Z79.51 Long term (current) use of inhaled steroids; Z87.891 Personal history of nicotine dependence; I25.2 Old myocardial infarction
CPT/HCPCS: 36415; 71045; 80053; 80069; 82550; 83880; 84484; 85025; 93005; 93010; 94640; 94664; 94762; 96365; 96375; 99285-25; A9270; J0456; J0696; J1650; J1940; J7050

== ENCOUNTER 2023-01-17 22:19 | Inpatient (IN) | payer OTHER ==
[~2023-01-17] VITALS: Ht 180.3 cm; Wt 81.5 kg
[~2023-01-17 22:19] MED LIST changes: +AMLO10 PO; +ATOR40TA PO; +AZIT500 PO; +BUME2 PO; +CEFD300 PO; +IPRAT-ALBUT 0.5-3 ML INH; -LIPITOR80 MG PO; +OXYC5 PO; +VISBIOME 112.51 EACH PO
[2023-01-17 22:35] LABS: BASOPHILS ABSOLUTE AUTO 0.03 K/mm3 (0.00-0.23); BASOPHILS PERCENT AUTO 0 % (0-2); EOSINOPHILS ABSOLUTE AUTO 0.14 K/mm3 (0.00-0.68); EOSINOPHILS PERCENT AUTO 2 % (0-6); Hematocrit 33.1 % (37.0-53.0); Hemoglobin 9.9 g/dL (13.5-17.5); IMMATURE GRAN ABSOLUTE AUTO 0.02 K/mm3 (0.00-0.10); IMMATURE GRAN PERCENT AUTO 0 % (0-1); LYMPHOCYTES ABSOLUTE AUTO 2.24 K/mm3 (0.84-5.20); LYMPHOCYTES PERCENT AUTO 26 % (21-46); MONOCYTES ABSOLUTE AUTO 0.77 K/mm3 (0.16-1.47); MONOCYTES PERCENT AUTO 9 % (4-13); Mean Corpuscular HGB 27.6 pg (26.0-34.0); Mean Corpuscular HGB Conc 29.9 g/dL (31.5-36.5); Mean Corpuscular Volume 92 fL (80-100); Mean Platelet Volume 10.9 fL (9.1-12.4); NEUTROPHILS ABSOLUTE AUTO 5.39 K/mm3 (1.96-9.15); NEUTROPHILS PERCENT AUTO 63 % (41-73); Platelet Count 164 K/mm3 (150-400); RDW Coefficient Variation 14.9 % (11.7-14.2); RDW Standard Deviation 50.1 fL (35.1-46.3); Red Blood Cell Count 3.59 M/mm3 (4.30-5.90); White Blood Cell Count 8.59 K/mm3 (4.00-11.30)
[2023-01-17 22:57] LABS: Albumin, Blood 3.1 g/dL (3.4-5.0); Albumin/Globulin Ratio 0.8 (0.8-1.8); Bilirubin, Total 0.6 mg/dL (0.1-1.0); Bun/Creatinine Ratio 12.4 (12.0-20.0); Calcium, Blood 8.9 mg/dL (8.5-10.1); Creatinine, Blood 2.82 mg/dL (0.60-1.20); Globulin, Blood 3.7 g/dL (2.2-4.0); Potassium, Blood 4.7 mmol/L (3.5-5.5); Total Protein, Blood 6.8 g/dL (6.4-8.2)
--- NOTE | 2023-01-18 02:10 | NUR ---
SPOKE WITH THE PT REGARDING RESUSCITATION STATUS DURING ADMIT ASSESSMENT AND PT REPORTS THAT HE WANTS "ONE TRY THEN GIVE IT OVER TO MY OR SON". SPOKE WITH [facility] RESIDENT WHO REPORTS PT AND STATED DNR ON ADMISSION. PT WILL NEED CONVERSATION WITH HOSPITALIST AND IN THE MORNING.
[2023-01-18 02:32] LABS: BASOPHILS ABSOLUTE AUTO 0.01 K/mm3 (0.00-0.23); BASOPHILS PERCENT AUTO 0 % (0-2); EOSINOPHILS ABSOLUTE AUTO 0.01 K/mm3 (0.00-0.68); EOSINOPHILS PERCENT AUTO 0 % (0-6); Hematocrit 33.6 % (37.0-53.0); Hemoglobin 10.2 g/dL (13.5-17.5); IMMATURE GRAN ABSOLUTE AUTO 0.02 K/mm3 (0.00-0.10); IMMATURE GRAN PERCENT AUTO 0 % (0-1); LYMPHOCYTES ABSOLUTE AUTO 0.22 K/mm3 (0.84-5.20); LYMPHOCYTES PERCENT AUTO 4 % (21-46); MONOCYTES ABSOLUTE AUTO 0.06 K/mm3 (0.16-1.47); MONOCYTES PERCENT AUTO 1 % (4-13); Mean Corpuscular HGB 27.6 pg (26.0-34.0); Mean Corpuscular HGB Conc 30.4 g/dL (31.5-36.5); Mean Corpuscular Volume 91 fL (80-100); Mean Platelet Volume 10.7 fL (9.1-12.4); NEUTROPHILS ABSOLUTE AUTO 5.98 K/mm3 (1.96-9.15); NEUTROPHILS PERCENT AUTO 95 % (41-73); Platelet Count 152 K/mm3 (150-400); RDW Coefficient Variation 14.9 % (11.7-14.2); RDW Standard Deviation 50.3 fL (35.1-46.3); Red Blood Cell Count 3.69 M/mm3 (4.30-5.90)
[2023-01-18 02:57] LABS: Albumin, Blood 3.1 g/dL (3.4-5.0); Albumin/Globulin Ratio 0.8 (0.8-1.8); Bilirubin, Total 0.6 mg/dL (0.1-1.0); Creatinine, Blood 2.77 mg/dL (0.60-1.20); Globulin, Blood 3.8 g/dL (2.2-4.0); Potassium, Blood 4.2 mmol/L (3.5-5.5); Total Protein, Blood 6.9 g/dL (6.4-8.2)
--- NOTE | 2023-01-18 06:48 | NUR ---
DEXIGRAPH OPERATOR SUMMARY ASSUMED CARE OF PT AT 0140 ON ADMIT FROM ER. PT IS ALERT AND ORIENTED X4, COOPERATIVE AND PLEASANT. PT ARRIVED ON CARDIZEM DRIP AT 5 MLS/HR AND HEART RATE HAS BEEN TRENDING DOWN INTO THE 60S WITH STABLE BP SO DRIP WAS STOPPED AT 0606 THIS MORNING. PT DENIES CHEST PAIN AND REPORTS IMPROVEMENT IN SOB. HE HAS BEEN UNABLE TO URINATE MORE THAN 50 MLS THIS SHIFT DESPITE BEING MEDICATED WITH BUMEX IN THE ER. BLADDER SCAN SHOWED >566 MLS IN HIS BLADDER SO STRAIGHT CATH WAS PERFORMED PER PROTOCOL WITH 750 MLS OF YELLOW URINE OUTPUT. PT HAS BEEN LEFT ON 2L BY NC DUE TO PREVIOUS DESATURATIONS WHILE SLEEPING. HE HAS 3+ EDEMA TO THE LEFT LEG AND 2+ TO THE RIGHT LEG. BREATH SOUNDS DIMINISHED THROUGHOUT. PT IS SBA AND ABLE TO AMBULATE AROUND HIS HOME NORMALLY WITHOUT ASSISTANCE.
--- NOTE | 2023-01-18 09:29 | NUR ---
AM NOTE Pt alert, oriented x4; calm and cooperative with care. Pt moves ind in bed, up with sba in room. Pt denies pain, chest pain/pressure, nausea, dizziness and numb/tingling. Pt reports sob has improved, spo2 >90% on ra, breathing even and unlabored. Tele afib 70-80's, bp stable. Edema noted to ble left greater than the right. Abd distended, pt states normal for him, states it hernia. Will monitor urine output, pt needed straight cath on last shift. Other vss. No other acute changes noted. Will continue to monitor.
--- NOTE | 2023-01-18 18:31 | NUR ---
Shift Summary Pt started on PO metoprolol this am. Pt receiving iv bumex. Vss. Bladder scan this afternoon 334, pt voided 300 out right after. No other acute changes noted. Will continue to monitor.
[2023-01-19 04:57] LABS: BASOPHILS ABSOLUTE AUTO 0.01 K/mm3 (0.00-0.23); BASOPHILS PERCENT AUTO 0 % (0-2); EOSINOPHILS PERCENT AUTO 0 % (0-6); Hematocrit 29.8 % (37.0-53.0); Hemoglobin 9.2 g/dL (13.5-17.5); IMMATURE GRAN ABSOLUTE AUTO 0.02 K/mm3 (0.00-0.10); IMMATURE GRAN PERCENT AUTO 0 % (0-1); LYMPHOCYTES ABSOLUTE AUTO 0.67 K/mm3 (0.84-5.20); LYMPHOCYTES PERCENT AUTO 10 % (21-46); MONOCYTES ABSOLUTE AUTO 0.49 K/mm3 (0.16-1.47); MONOCYTES PERCENT AUTO 7 % (4-13); Mean Corpuscular HGB 27.9 pg (26.0-34.0); Mean Corpuscular HGB Conc 30.9 g/dL (31.5-36.5); Mean Corpuscular Volume 90 fL (80-100); Mean Platelet Volume 11.3 fL (9.1-12.4); NEUTROPHILS ABSOLUTE AUTO 5.79 K/mm3 (1.96-9.15); NEUTROPHILS PERCENT AUTO 83 % (41-73); Platelet Count 148 K/mm3 (150-400); RDW Coefficient Variation 15.1 % (11.7-14.2); RDW Standard Deviation 50.4 fL (35.1-46.3); White Blood Cell Count 6.98 K/mm3 (4.00-11.30)
[2023-01-19 05:14] LABS: Bun/Creatinine Ratio 15.6 (12.0-20.0); Calcium, Blood 8.7 mg/dL (8.5-10.1); Creatinine, Blood 2.88 mg/dL (0.60-1.20); Potassium, Blood 4.7 mmol/L (3.5-5.5)
--- NOTE | 2023-01-19 06:48 | NUR ---
LEATHER BELT LOOP CUTTER SUMMARY ASSUMED CARE OF THE PATIENT AT 1900. HE IS ALERT AND ORIENTED X4, COOPERATIVE. PT MOVING AROUND WITH MINIMAL ASSISTANCE. HE IS ABLE TO SIT AT THE EDGE OF THE BED TO URINATE. PT HAD TWO EPISODES OF URINATION THIS SHIFT AND SMALL AMOUNT OF PO INTAKE. HE HAS BEEN AFIB ON TELE RANGING BETWEEN 80 AND 100S. HE DID HAVE SOME EPISODES OF "TIGHTNESS" IN HIS CHEST THAT IMPROVED WITH SITTING THE HEAD OF THE BED UP AND SOME BREATHING TXS. HE STILL HAS SWELLING TO BLE. LUNG SOUNDS STILL DIMINISHED IN THE BASES. SATURATIONS HAVE BEEN MID TO HIGH 90S ON 1L BY NC.
--- NOTE | 2023-01-19 07:27 | NUR ---
AM NOTE PT ALERT, ORIENTED x4; FORGETFUL AT TIMES. PT RESTING IN BED, UP WITH SBA IN ROOM. PT DENIES PAIN, CHEST PAIN/PRESSURE, SOB, NAUSES, DIZZINESS AND NUMB/TINGLING AT THIS TIME. TELE AFIB 70-80, BP STABLE. SPO2 >90% ON RA, BREATHING EVEN UNLABORED, SCATTERED EXP WHEEZE NOTED. ABD DISTENDED, MIDLINE HERNIA PER PT, +BT x4 QUAD. WILL MONITOR OUTPUT DURING SHIFT. OTHER VSS. WILL CONTINUE TO MONITOR.
--- NOTE | 2023-01-19 14:48 | NUR ---
Discharge note No acute changes noted t/o shift. Pt educated on discharge instructions, follow up appointment and prescriptions. [facility]. Pt plans to attempt to pick up driver prescriptions on way home if spouse brought his id to pick him up. Vss. Pt left via wheelchair at 1312
== END 2023-01-19 13:12 | disposition home or self-care (01) | DRG 291 ==
LOC: ER 22:19 → PCU 01-18 01:34
PROVIDERS: Emergency Medicine; Internal Medicine; Student in an Organized Health Care Education/Training Program; ADMIT Internal Medicine
DX: I13.0 Hypertensive heart and chronic kidney disease with heart failure and stage 1 through stage 4 chronic kidney disease, or unspecified chronic kidney disease (principal); I50.43 Acute on chronic combined systolic (congestive) and diastolic (congestive) heart failure; J96.01 Acute respiratory failure with hypoxia; N18.4 Chronic kidney disease, stage 4 (severe); Q60.0 Renal agenesis, unilateral; Z66 Do not resuscitate; I48.91 Unspecified atrial fibrillation; J44.9 Chronic obstructive pulmonary disease, unspecified; E78.5 Hyperlipidemia, unspecified; I25.5 Ischemic cardiomyopathy; I25.10 Atherosclerotic heart disease of native coronary artery without angina pectoris; N40.0 Benign prostatic hyperplasia without lower urinary tract symptoms; Z79.02 Long term (current) use of antithrombotics/antiplatelets; Z95.5 Presence of coronary angioplasty implant and graft; Z79.899 Other long term (current) drug therapy; Z98.890 Other specified postprocedural states; Z91.041 Radiographic dye allergy status; Z79.2 Long term (current) use of antibiotics; Z79.51 Long term (current) use of inhaled steroids; Z87.891 Personal history of nicotine dependence; I25.2 Old myocardial infarction; Z90.49 Acquired absence of other specified parts of digestive tract
CPT/HCPCS: 36415; 51701; 71045; 80048; 80053; 83880; 84484; 85025; 93005; 93010; 94640; 94664; 94762; 96365; 96366; 96375; 99285-25; A9270; J1650; J1940

== ENCOUNTER 2023-01-30 23:26 | Inpatient (IN) | payer OTHER ==
[~2023-01-30] VITALS: Ht 180.3 cm; Wt 79.9 kg
[2023-01-30 23:51] LABS: BASOPHILS ABSOLUTE AUTO 0.02 K/mm3 (0.00-0.23); BASOPHILS PERCENT AUTO 0 % (0-2); EOSINOPHILS ABSOLUTE AUTO 0.09 K/mm3 (0.00-0.68); EOSINOPHILS PERCENT AUTO 1 % (0-6); Hematocrit 32.5 % (37.0-53.0); Hemoglobin 10.1 g/dL (13.5-17.5); IMMATURE GRAN ABSOLUTE AUTO 0.02 K/mm3 (0.00-0.10); IMMATURE GRAN PERCENT AUTO 0 % (0-1); LYMPHOCYTES ABSOLUTE AUTO 1.03 K/mm3 (0.84-5.20); LYMPHOCYTES PERCENT AUTO 13 % (21-46); MONOCYTES PERCENT AUTO 7 % (4-13); Mean Corpuscular HGB 27.7 pg (26.0-34.0); Mean Corpuscular HGB Conc 31.1 g/dL (31.5-36.5); Mean Corpuscular Volume 89 fL (80-100); Mean Platelet Volume 10.6 fL (9.1-12.4); NEUTROPHILS ABSOLUTE AUTO 6.39 K/mm3 (1.96-9.15); NEUTROPHILS PERCENT AUTO 79 % (41-73); Platelet Count 118 K/mm3 (150-400); RDW Coefficient Variation 14.9 % (11.7-14.2); RDW Standard Deviation 48.6 fL (35.1-46.3); Red Blood Cell Count 3.64 M/mm3 (4.30-5.90); White Blood Cell Count 8.15 K/mm3 (4.00-11.30)
[2023-01-31 00:06] LABS: Albumin, Blood 3.2 g/dL (3.4-5.0); Albumin/Globulin Ratio 0.9 (0.8-1.8); Bilirubin, Total 0.6 mg/dL (0.1-1.0); Bun/Creatinine Ratio 14.1 (12.0-20.0); Calcium, Blood 8.7 mg/dL (8.5-10.1); Creatinine, Blood 2.63 mg/dL (0.60-1.20); Globulin, Blood 3.7 g/dL (2.2-4.0); Potassium, Blood 3.7 mmol/L (3.5-5.5); Total Protein, Blood 6.9 g/dL (6.4-8.2)
[2023-01-31 07:56] LABS: CPK Creatine Kinase 36 U/L (39-308)
[2023-01-31 15:19] LABS: CPK Creatine Kinase 43 U/L (39-308)
--- NOTE | 2023-01-31 18:27 | NUR ---
SHIFT SUMMARY 12:20 RECEIVED PT TO RM 337 [employer]IA [employer] FROM ER. PT ABLE TO TX SELF TO BED WITH SBA. PT ADMITTED FOR CHF EXAC. PER REPORT, PT JUST D/C'D RECENTLY FOR SIMULAR SYMPTOMS. PT DOESN'T KNOW WHAT MEDS HE TAKES OR IF AND WHEN HE TAKES THEM. PT REPORTED HELPS WITH MEDS. PT ABLE TO USE URINAL AT BS. BUMEX GIVEN IN ER. PER REPORT, PT VOIDED 900cc IN ER. HX A-FIB, COPD, HTN, CHF, AND CKD 5. PT REQUESTED RT TX THIS AFTERNOON. DR JOSUE NOTIFIED FOR HOME MEDICATION ORDERS. RT TO FOR TX ONCE ORDERS IN. PT'S HERE EARLIER TO ASSIST WITH HOME MED LIST. PT ANXIOUS ABOUT HOME MEDS BEING GIVEN. REVIEWED EMAR WITH PT; VERBALIZED UNDERSTANDING. CALL LT IN REACH. ABLE TO MAKE NEEDS KNOWN.
[2023-02-01 06:09] LABS: BASOPHILS ABSOLUTE AUTO 0.02 K/mm3 (0.00-0.23); BASOPHILS PERCENT AUTO 0 % (0-2); EOSINOPHILS ABSOLUTE AUTO 0.15 K/mm3 (0.00-0.68); EOSINOPHILS PERCENT AUTO 2 % (0-6); Hemoglobin 9.7 g/dL (13.5-17.5); IMMATURE GRAN ABSOLUTE AUTO 0.01 K/mm3 (0.00-0.10); IMMATURE GRAN PERCENT AUTO 0 % (0-1); LYMPHOCYTES PERCENT AUTO 15 % (21-46); MONOCYTES ABSOLUTE AUTO 0.54 K/mm3 (0.16-1.47); MONOCYTES PERCENT AUTO 8 % (4-13); Mean Corpuscular HGB 28.2 pg (26.0-34.0); Mean Corpuscular HGB Conc 31.3 g/dL (31.5-36.5); Mean Corpuscular Volume 90 fL (80-100); Mean Platelet Volume 10.9 fL (9.1-12.4); NEUTROPHILS ABSOLUTE AUTO 5.03 K/mm3 (1.96-9.15); NEUTROPHILS PERCENT AUTO 75 % (41-73); Platelet Count 116 K/mm3 (150-400); RDW Coefficient Variation 14.9 % (11.7-14.2); RDW Standard Deviation 48.4 fL (35.1-46.3); Red Blood Cell Count 3.44 M/mm3 (4.30-5.90); White Blood Cell Count 6.75 K/mm3 (4.00-11.30)
[2023-02-01 06:43] LABS: Albumin, Blood 2.9 g/dL (3.4-5.0); Albumin/Globulin Ratio 0.9 (0.8-1.8); Bilirubin, Total 1.1 mg/dL (0.1-1.0); Bun/Creatinine Ratio 13.3 (12.0-20.0); Calcium, Blood 8.7 mg/dL (8.5-10.1); Creatinine, Blood 2.85 mg/dL (0.60-1.20); Globulin, Blood 3.2 g/dL (2.2-4.0); Total Protein, Blood 6.1 g/dL (6.4-8.2)
--- NOTE | 2023-02-01 15:58 | NUR ---
PT AWAKE AT START OF SHIFT, RESTING QUIETLY FOWLERS. PT REQUESTING TO GO HOME TODAY. PT REPORTED BREATHING EASIER TODAY AND ABLE TO LAY DOWN IN BED AND SLEEP. PT REPORTING THAT HE WAS UNABLE TO DO THAT YESTERDAY. PT VOIDING WELL AFTER BUMEX AGAIN TODAY. ECHO BEING DONE WHEN DR JOSUE IN TO VISIT THIS AM. PT WANTING TO GO WHEN COMPLETE. DR JOSUE DISCUSSED PLAN OF CARE. D/C ORDERS PLACED. NO NEW MEDICATIONS ORDERED. IV SITE D/C'D WNL'S. PT ABLE TO DRESS SELF. AMBULATING IN RM AND TO [facility] INDEPENDENT[facility]. PT REPORTING THAT HE IS ABLE TO GET AROUND AT HOME "NO PROBLEM". DENIED SOB. REPORTING BREATHING EASIER NOW. PT'S NOTIFIED OF D/C. PT'S BROTHER HERE TO P/U. PT ASSISTED DOWN TO BROTHER'S TRUCK VIA W/C. BELONGINGS IN HAND.
== END 2023-02-01 14:34 | disposition home health service (06) | DRG 291 ==
LOC: ER 23:26 → ERHOLD 23:27 → MEDS 01-31 12:49
PROVIDERS: Student in an Organized Health Care Education/Training Program; ADMIT Internal Medicine
DX: I13.0 Hypertensive heart and chronic kidney disease with heart failure and stage 1 through stage 4 chronic kidney disease, or unspecified chronic kidney disease (principal); I50.43 Acute on chronic combined systolic (congestive) and diastolic (congestive) heart failure; J96.01 Acute respiratory failure with hypoxia; Q60.0 Renal agenesis, unilateral; N18.4 Chronic kidney disease, stage 4 (severe); I71.20 Thoracic aortic aneurysm, without rupture, unspecified; E78.5 Hyperlipidemia, unspecified; Z66 Do not resuscitate; I48.91 Unspecified atrial fibrillation; J44.9 Chronic obstructive pulmonary disease, unspecified; I16.0 Hypertensive urgency; I25.5 Ischemic cardiomyopathy; I25.2 Old myocardial infarction; Z98.890 Other specified postprocedural states; Z90.49 Acquired absence of other specified parts of digestive tract; Z95.5 Presence of coronary angioplasty implant and graft; Z95.828 Presence of other vascular implants and grafts; Z87.891 Personal history of nicotine dependence; Z91.041 Radiographic dye allergy status; Z79.899 Other long term (current) drug therapy; Z79.02 Long term (current) use of antithrombotics/antiplatelets; Z79.51 Long term (current) use of inhaled steroids
CPT/HCPCS: 36415; 71045; 80053; 82550; 83880; 84484; 85025; 93005; 93010; 93308; 93321; 94640; 94664; 94760; 96372-59; 96374; 96375; 99285-25; A9270; J1650; J1940

== ENCOUNTER → 2023-02-03 | Outpatient (CLI) | payer OTHER ==
[2023-02-03 17:37] LABS: BASOPHILS ABSOLUTE AUTO 0.01 K/mm3 (0.00-0.23); BASOPHILS PERCENT AUTO 0 % (0-2); EOSINOPHILS ABSOLUTE AUTO 0.14 K/mm3 (0.00-0.68); EOSINOPHILS PERCENT AUTO 3 % (0-6); Hematocrit 30.4 % (37.0-53.0); Hemoglobin 9.4 g/dL (13.5-17.5); IMMATURE GRAN ABSOLUTE AUTO 0.02 K/mm3 (0.00-0.10); IMMATURE GRAN PERCENT AUTO 0 % (0-1); LYMPHOCYTES ABSOLUTE AUTO 0.89 K/mm3 (0.84-5.20); LYMPHOCYTES PERCENT AUTO 16 % (21-46); MONOCYTES ABSOLUTE AUTO 0.46 K/mm3 (0.16-1.47); MONOCYTES PERCENT AUTO 8 % (4-13); Mean Corpuscular HGB 28.1 pg (26.0-34.0); Mean Corpuscular HGB Conc 30.9 g/dL (31.5-36.5); Mean Corpuscular Volume 91 fL (80-100); NEUTROPHILS PERCENT AUTO 73 % (41-73); Platelet Count 100 K/mm3 (150-400); RDW Coefficient Variation 14.7 % (11.7-14.2); RDW Standard Deviation 49.1 fL (35.1-46.3); Red Blood Cell Count 3.35 M/mm3 (4.30-5.90); White Blood Cell Count 5.52 K/mm3 (4.00-11.30)
[2023-02-03 19:08] LABS: Creatinine, Urine Random 33.4 mg/dL (27.00-270.00); Protein, Urine Random 46.5 mg/dL (0.0-11.9); Protein/Creat Ratio, Ur Random 1.4
[2023-02-03 20:43] LABS: Albumin, Blood 2.9 g/dL (3.4-5.0); Albumin/Globulin Ratio 0.8 (0.8-1.8); Bilirubin, Total 0.7 mg/dL (0.1-1.0); Calcium, Blood 8.5 mg/dL (8.5-10.1); Creatinine, Blood 2.88 mg/dL (0.60-1.20); Globulin, Blood 3.5 g/dL (2.2-4.0); Percent Saturation 8.6 % (20.0-50.0); Potassium, Blood 3.9 mmol/L (3.5-5.5); Total Protein, Blood 6.4 g/dL (6.4-8.2)
== END | disposition home or self-care (01) ==
LOC: LAB SHORT 14:43
PROVIDERS: Internal Medicine Nephrology
DX: I13.0 Hypertensive heart and chronic kidney disease with heart failure and stage 1 through stage 4 chronic kidney disease, or unspecified chronic kidney disease (principal); N18.9 Chronic kidney disease, unspecified; I50.9 Heart failure, unspecified
CPT/HCPCS: 80053; 82306; 82570; 82728; 83540; 83550; 83970; 84156; 85025

== ENCOUNTER 2023-03-10 21:35 | Emergency (ER) | payer OTHER ==
[~2023-03-10] VITALS: Ht 180.3 cm; Wt 79.4 kg
[2023-03-10 22:13] LABS: BASOPHILS ABSOLUTE AUTO 0.01 K/mm3 (0.00-0.23); BASOPHILS PERCENT AUTO 0 % (0-2); EOSINOPHILS ABSOLUTE AUTO 0.17 K/mm3 (0.00-0.68); EOSINOPHILS PERCENT AUTO 3 % (0-6); Hematocrit 31.7 % (37.0-53.0); Hemoglobin 9.8 g/dL (13.5-17.5); IMMATURE GRAN ABSOLUTE AUTO 0.01 K/mm3 (0.00-0.10); IMMATURE GRAN PERCENT AUTO 0 % (0-1); LYMPHOCYTES PERCENT AUTO 17 % (21-46); MONOCYTES PERCENT AUTO 8 % (4-13); Mean Corpuscular HGB 27.7 pg (26.0-34.0); Mean Corpuscular HGB Conc 30.9 g/dL (31.5-36.5); Mean Corpuscular Volume 90 fL (80-100); Mean Platelet Volume 10.4 fL (9.1-12.4); NEUTROPHILS PERCENT AUTO 72 % (41-73); Platelet Count 122 K/mm3 (150-400); RDW Coefficient Variation 14.3 % (11.7-14.2); RDW Standard Deviation 47.4 fL (35.1-46.3); Red Blood Cell Count 3.54 M/mm3 (4.30-5.90); White Blood Cell Count 6.39 K/mm3 (4.00-11.30)
[2023-03-10 22:27] LABS: Albumin, Blood 3.1 g/dL (3.4-5.0); Albumin/Globulin Ratio 0.9 (0.8-1.8); Bilirubin, Total 0.9 mg/dL (0.1-1.0); Bun/Creatinine Ratio 14.6 (12.0-20.0); Calcium, Blood 9.1 mg/dL (8.5-10.1); Creatinine, Blood 2.81 mg/dL (0.60-1.20); Globulin, Blood 3.6 g/dL (2.2-4.0); Potassium, Blood 3.8 mmol/L (3.5-5.5); Total Protein, Blood 6.7 g/dL (6.4-8.2)
[2023-03-10] MEDS ORDERED: BUME2 PO (23:31)
[2023-03-10 23:45] VITALS: BP 142/77
== END 2023-03-10 23:45 | disposition home or self-care (01) ==
LOC: ER 21:35
PROVIDERS: Emergency Medicine
DX: I13.0 Hypertensive heart and chronic kidney disease with heart failure and stage 1 through stage 4 chronic kidney disease, or unspecified chronic kidney disease (principal); N18.4 Chronic kidney disease, stage 4 (severe); I50.42 Chronic combined systolic (congestive) and diastolic (congestive) heart failure; R05.9 Cough, unspecified; E78.5 Hyperlipidemia, unspecified; J44.9 Chronic obstructive pulmonary disease, unspecified; Z91.041 Radiographic dye allergy status; Z79.02 Long term (current) use of antithrombotics/antiplatelets; Z79.899 Other long term (current) drug therapy
CPT/HCPCS: 71045; 80053; 84484; 85025; 93005; 93010; 96374; 99284-25

== ENCOUNTER 2023-03-13 06:32 | Inpatient (IN) | payer OTHER ==
[~2023-03-13] VITALS: Ht 180.3 cm; Wt 82.0 kg
[2023-03-13 07:15] LABS: BASOPHILS ABSOLUTE AUTO 0.02 K/mm3 (0.00-0.23); BASOPHILS PERCENT AUTO 0 % (0-2); EOSINOPHILS ABSOLUTE AUTO 0.12 K/mm3 (0.00-0.68); EOSINOPHILS PERCENT AUTO 2 % (0-6); Hematocrit 28.9 % (37.0-53.0); Hemoglobin 9.1 g/dL (13.5-17.5); IMMATURE GRAN ABSOLUTE AUTO 0.01 K/mm3 (0.00-0.10); IMMATURE GRAN PERCENT AUTO 0 % (0-1); LYMPHOCYTES ABSOLUTE AUTO 2.26 K/mm3 (0.84-5.20); LYMPHOCYTES PERCENT AUTO 39 % (21-46); MONOCYTES ABSOLUTE AUTO 0.53 K/mm3 (0.16-1.47); MONOCYTES PERCENT AUTO 9 % (4-13); Mean Corpuscular HGB 28.1 pg (26.0-34.0); Mean Corpuscular HGB Conc 31.5 g/dL (31.5-36.5); Mean Corpuscular Volume 89 fL (80-100); Mean Platelet Volume 11.3 fL (9.1-12.4); NEUTROPHILS ABSOLUTE AUTO 2.86 K/mm3 (1.96-9.15); NEUTROPHILS PERCENT AUTO 49 % (41-73); Platelet Count 106 K/mm3 (150-400); RDW Coefficient Variation 14.5 % (11.7-14.2); RDW Standard Deviation 46.6 fL (35.1-46.3); Red Blood Cell Count 3.24 M/mm3 (4.30-5.90)
[2023-03-13 07:19] LABS: Albumin/Globulin Ratio 0.9 (0.8-1.8); Bilirubin, Total 0.7 mg/dL (0.1-1.0); Bun/Creatinine Ratio 15.3 (12.0-20.0); Calcium, Blood 8.5 mg/dL (8.5-10.1); Creatinine, Blood 2.88 mg/dL (0.60-1.20); Globulin, Blood 3.5 g/dL (2.2-4.0); Potassium, Blood 3.3 mmol/L (3.5-5.5); Total Protein, Blood 6.5 g/dL (6.4-8.2)
[2023-03-13 08:51] LABS: Influenza A, PCR NEGATIVE (NEGATIVE); Influenza B, PCR NEGATIVE (NEGATIVE); Resp Syncytial Virus, PCR NEGATIVE (NEGATIVE); SARS-Cov-2 (COVID-19) PCR, MMC NEGATIVE (NEGATIVE)
--- NOTE | 2023-03-13 09:41 | NUR ---
ED Palliative Care Consult Spoke with Dr Bejarano and discussed case. Pt to the ED with dsypnea. Pt has multiple ED visits and hospitalizations over the past 6 months. Pt medical history and comorbidities include: COPD, Ischemic Cardiomyopathy, CKD4, Thoracic AAA, and NSTEMI. Pt may benefit from code status discussion and advanced care planning. Pt is known to this screenplay writer from previous hospital stay. Pt resting on gurney upon arrival. Pt's spouse Rose at bedside. Pt denies pain at this time but states having intermittent pain that "crosses his heart". Pt reports mild dyspnea and is mildly anxious. Pt reports being tired and has been awake since midnight. This RN kept visit brief. Brief gentle discussion regarding code status. Educated on life sustaining measures including riks and implications to CPR/Intubation. Pt reports plan to consider his wishes. Pt and spouse agreeable for Palliative Care to F/U if admitted and discuss advanced care planning. Palliative Care will remain available and F/U for advanced care planning.
[2023-03-13 12:38] VITALS: BP 118/79
[2023-03-13] MEDS ORDERED: Percocet 5-3251 EACH PO (15:11)
[2023-03-13 15:14] VITALS: BP 129/84
--- NOTE | 2023-03-13 16:27 | NUR ---
SHIFT SUMMARY PT A&OX4 AND IN PLEASENT MOOD SINCE ARRIVAL FROM ER. TOLERATING ORAL INTAKE WELL-1500 FLUID RESTRICT, VSS. PLAN TO ADMINISTER BUMEX. CALL LIGHT W/IN REACH. TELE IN PLACE, AFIB.
--- NOTE | 2023-03-13 19:00 | NUR ---
DISCHARGE PT A&OX4 REAL ESTATE INSTRUCTOR AT BEDSIDE. MED FAXED TO [facility] [address]. IV/TELE DC'ED. REAL ESTATE INSTRUCTOR PROVIDED PT W/ POWER CHAIR AND TRANSPORTATION. TOLERATING PO INTAKE WELL. VSS. RA
[2023-03-13 19:25] VITALS: BP 131/75
[2023-03-13 21:34] VITALS: BP 135/70
[2023-03-14 02:08] VITALS: BP 134/88
[2023-03-14 05:54] LABS: Hematocrit 29.2 % (37.0-53.0); Mean Corpuscular HGB 27.4 pg (26.0-34.0); Mean Corpuscular HGB Conc 30.8 g/dL (31.5-36.5); Mean Corpuscular Volume 89 fL (80-100); Mean Platelet Volume 11.4 fL (9.1-12.4); Platelet Count 116 K/mm3 (150-400); RDW Coefficient Variation 14.6 % (11.7-14.2); RDW Standard Deviation 47.2 fL (35.1-46.3); Red Blood Cell Count 3.29 M/mm3 (4.30-5.90); White Blood Cell Count 6.16 K/mm3 (4.00-11.30)
[2023-03-14 06:24] LABS: Bun/Creatinine Ratio 18.1 (12.0-20.0); Calcium, Blood 8.9 mg/dL (8.5-10.1); Creatinine, Blood 3.26 mg/dL (0.60-1.20); Potassium, Blood 4.4 mmol/L (3.5-5.5)
--- NOTE | 2023-03-14 06:24 | NUR ---
Shift Summary Pt on 1500 mL fluid restriction, he had a difficult time early last night c/o dry mouth and thirst. He was able to sleep well but awoke around 0400 c/o SoB and tightness in his chest. Pt states he gets a breathing treatment at the home he lives in daily around 0300. Called RT who gave him a neb treatment, pt states it helped and he was able to get back to sleep. AOx4, uses urinal independently. VSS, pleasant and cooperative.
[2023-03-14 07:03] VITALS: BP 128/73
--- NOTE | 2023-03-14 08:00 | NUR ---
Pt laying in bed awake a/ox3, forgetful at times, cooperative with care, follows commands well, denies pain at this time, lungs are clear dim in bases, resp even and unlabored, on r/a, no cough noted, hrirr, +1 edema noted to b/l le, skin wrinkled so going down,ppp faint, cap refill< 3 sec, vs stable, afebrile, iv site is clear and patent, btx4, abd flat soft nontender, hernia noted to abd, voids russell urine via urial, skin c/w/d, maew, up ad allan in room, ivy, call light in reach. will be having a stress test, and order recieved to consult Dr. Patel, this was done, he is in room.
[2023-03-14 14:23] VITALS: BP 130/95
[2023-03-14 14:57] VITALS: BP 122/90
--- NOTE | 2023-03-14 18:14 | NUR ---
pt doing ok, he understands he will be here a few more days, no acute changes this shift. no needs at this time, enjoyed speaking about his puppy at home, call light in reach.
[2023-03-14 20:35] VITALS: BP 134/81
[2023-03-15] VITALS (7 sets, daily range): BP systolic 113–128; BP diastolic 75–87
--- NOTE | 2023-03-15 04:14 | NUR ---
SHIFT SUMMARY- PT IS A/O, PLESANT AND COOPERATIVE. HE SLEPT INTERMITENTLY DURING THIS SHIFT. HE C/O CHEST PAIN, NOTIFIED PROVIDER. GAVE PRN PAIN MEDICATION, RESOLVED. HIS BED IS IN THE LOW POSITON AND CALL LIGHT IS WITIN REACH.
[2023-03-15 06:21] LABS: Anion Gap 6 mmol/L (6-16); Blood Urea Nitrogen 69 mg/dL (8-24); Bun/Creatinine Ratio 21.4 (12.0-20.0); CO2, Blood 28 mmol/L (21-32); Calcium, Blood 8.8 mg/dL (8.5-10.1); Chloride, Blood 108 mmol/L (98-108); Creatinine, Blood 3.22 mg/dL (0.60-1.20); Ferritin, Serum 127 ng/mL (26-388); Glomerular Filtration Rate 19 (60-); Glucose, Blood 117 mg/dL (70-99); Iron Serum 28 ug/dL (65-175); Percent Saturation 11.4 % (20.0-50.0); Phosphorus, Blood 3.6 mg/dL (2.5-4.9); Potassium, Blood 4.6 mmol/L (3.5-5.5); Sodium, Blood 142 mmol/L (136-145); Total Iron Binding Capacity 245 ug/dL (250-450)
--- NOTE | 2023-03-15 18:25 | NUR ---
SHIFT SUMMARY: PATIENT A&OX4. PLEASANT AND COOPERATIVE c CARE. USES CALL LIGHT APPROPRIATELY AND ABLE TO MAKE NEEDS KNOWN. PATIENT WORK c PT MOBILITY TODAY. PT RECOMMENDED D/C HOME PRIOR TO LIVING SITUATION c NO FURTHER FOLLOW-UP TX, PATIENT AT BASELINE. FR OF 1500, TOTAL PO INTAKE 960 MLS; TOTAL URINE OUTPUT 1100 MLS, 1 UNMEASURED VOID AND 1 BM THIS SHIFT. DENIES CP/PRESSURE, N/V AND GENERALIZED PAIN. ON TELE A-FIV HR RANGES IN THE 80'S-109'S T/O SHIFT. PATIENT REPORTS SOB c SPO2 RANGES 98-100. PATIENT REQUESTED SUPPLEMENTAL O2, PLACED ON 1L OF O2 VIA NC FOR COMFORT. PATIENT RESTING IN BED T/O SHIFT. RECEIVED SCHEDULED MEDS PER EMAR. VITAL SIGNS REVIEWED. CALL LIGHT IN REACH.
--- NOTE | 2023-03-15 19:29 | NUR ---
patient very distraught about being designated as a DNR. His wishes are to be a FULL CODE, and then should he survive, His and brother will make any further decisions about whether or not he would be coded again. Call placed to hospitalist to inform of patient wishes.
[2023-03-16 05:00] LABS: Hematocrit 29.2 % (37.0-53.0); Mean Corpuscular HGB 27.4 pg (26.0-34.0); Mean Corpuscular HGB Conc 30.8 g/dL (31.5-36.5); Mean Corpuscular Volume 89 fL (80-100); Mean Platelet Volume 11.1 fL (9.1-12.4); Platelet Count 114 K/mm3 (150-400); RDW Coefficient Variation 14.9 % (11.7-14.2); RDW Standard Deviation 49.3 fL (35.1-46.3); Red Blood Cell Count 3.28 M/mm3 (4.30-5.90); White Blood Cell Count 6.35 K/mm3 (4.00-11.30)
[2023-03-16 05:05] VITALS: BP 130/78
--- NOTE | 2023-03-16 05:09 | NUR ---
MR BARTON HAD EXCELLENT URINE OUTPUT OVERNIGHT. HE WAS QUITE ANXIOUS EARLY IN THE EVENING, AND REQUESTED SOMETHING TO ASSIST HIM IN BEING ABLE TO RELAX AND SLEEP. LUNG SOUNDS WERE COARSE WITH EXPIRATORY WHEEZES, AND THE PATIENT HAD A VERY LOOSE SOUNDING NON PRODUCTIVE COUGH. ORDER RECEIVED FOR ONE TIME DOSE OF 7.5MG RESTORIL, AND A PRN 02 ORDER FOR PATIENT COMFORT (SATURATIONS IN MID 90'S ON RA) PATIENT IS TOLERATING FLUID RESTRICTION. WILL CONTINUE CLOSE MONITORING
[2023-03-16 05:37] LABS: Albumin, Blood 2.9 g/dL (3.4-5.0); Anion Gap 5 mmol/L (6-16); Blood Urea Nitrogen 78 mg/dL (8-24); Bun/Creatinine Ratio 23.1 (12.0-20.0); CO2, Blood 28 mmol/L (21-32); Calcium, Blood 8.8 mg/dL (8.5-10.1); Chloride, Blood 106 mmol/L (98-108); Creatinine, Blood 3.37 mg/dL (0.60-1.20); Glomerular Filtration Rate 18 (60-); Glucose, Blood 98 mg/dL (70-99); Phosphorus, Blood 3.9 mg/dL (2.5-4.9); Potassium, Blood 4.5 mmol/L (3.5-5.5); Sodium, Blood 139 mmol/L (136-145)
[2023-03-16 08:33] VITALS: BP 135/79
[2023-03-16] MEDS ORDERED: VITAMIN C125 MG PO (13:39)
[2023-03-16] MEDS ORDERED: FERSU300 PO (13:40)
[2023-03-16] MEDS ORDERED: DOCU100 PO (13:40)
[2023-03-16] MEDS ORDERED: METO2.5 PO (13:41)
[2023-03-16] MEDS ORDERED: SPIR25 PO (13:41)
[2023-03-16 14:52] VITALS: BP 125/69
--- NOTE | 2023-03-16 15:43 | NUR ---
DISCHARGE SUMMARY: PATIENT DENIED PAIN THROUGHOUT THE SHIFT. PATIENT DECLINED USING THE O2 FOR COMFORT DURING THE DAY. PATIENT STABLE ON RA AFTER THIS POINT. PATIENT INDEPENDENT WITH ADLS AND NEEDS IN THE ROOM. PATIENT CONTINUED TO VOID CLEAR, LIGHT YELLOW URINE. PATIENT TOLERATED DIURETICS WELL. PATIENT RECEIVED BREATHING TREATMENTS PER ORDERS. PATIENT REPORTED THAT HIS BREATHING FELT BACK TO BASELINE. PATIENT CONTINUES TO HAVE 2+ PITTING EDEMA ON BLE. PATIENT REPORTS THAT IT LOOKS BETTER. PATIENT KEPT LEGS ELEVATED WHEN NOT EATING. PATIENT DISCHARGE MEDICATIONS FAXED TO [facility] PER REQUEST. DISCUSSED IMPORTANCE OF TAKING DAILY DIURETICS. PATIENT AND SPOUSE REPORT UNDERSTANDING AND THAT THEY WILL REACH OUT IF [facility] TO GET [facility]ICATIONS TOMORROW. DISCHARGE INSTRUCTIONS AND EDUCATION PROVIDED. ALL QUESTIONS AND CONCERNS ADDRESSED AT THIS TIME. PATIENT DISCHARGED IN WHEELCHAIR WITH RN AND SPOUSE. PATIENT STABLE AT TIME OF DISCHARGE.
[2023-03-18 16:09] LABS: ALBUMIN 3.1 g/dL (2.9-4.4); ALPHA-1-GLOBULIN 0.4 g/dL (0.0-0.4); ALPHA-2-GLOBULIN 0.7 g/dL (0.4-1.0); BETA GLOBULIN 0.8 g/dL (0.7-1.3); GAMMA GLOBULIN 1.2 g/dL (0.4-1.8); M-SPIKE Comment: g/dL (Not Observed); PROTEIN, TOTAL, SERUM 6.1 g/dL (6.0-8.5)
== END 2023-03-16 15:23 | disposition home or self-care (01) | DRG 291 ==
LOC: ER 06:32 → MEDS 06:33
PROVIDERS: Emergency Medicine; Internal Medicine Nephrology; ADMIT Internal Medicine
DX: I13.0 Hypertensive heart and chronic kidney disease with heart failure and stage 1 through stage 4 chronic kidney disease, or unspecified chronic kidney disease (principal); I50.43 Acute on chronic combined systolic (congestive) and diastolic (congestive) heart failure; N17.9 Acute kidney failure, unspecified; N18.4 Chronic kidney disease, stage 4 (severe); R94.31 Abnormal electrocardiogram [ECG] [EKG]; E78.5 Hyperlipidemia, unspecified; Z66 Do not resuscitate; D63.1 Anemia in chronic kidney disease; E87.6 Hypokalemia; I25.5 Ischemic cardiomyopathy; I25.10 Atherosclerotic heart disease of native coronary artery without angina pectoris; N40.0 Benign prostatic hyperplasia without lower urinary tract symptoms; J44.9 Chronic obstructive pulmonary disease, unspecified; I48.0 Paroxysmal atrial fibrillation; D50.9 Iron deficiency anemia, unspecified; Z20.822 Contact with and (suspected) exposure to COVID-19; Z91.041 Radiographic dye allergy status; Z79.899 Other long term (current) drug therapy; Z79.02 Long term (current) use of antithrombotics/antiplatelets; Z79.51 Long term (current) use of inhaled steroids; I25.2 Old myocardial infarction; Z98.890 Other specified postprocedural states; Z90.49 Acquired absence of other specified parts of digestive tract; Z95.5 Presence of coronary angioplasty implant and graft; Z87.891 Personal history of nicotine dependence; Z79.891 Long term (current) use of opiate analgesic
CPT/HCPCS: 0241U; 36415; 71045; 78452; 80048; 80053; 80069; 82306; 82570; 82728; 83540; 83550; 83880; 83970; 84145; 84156; 84165; 84484; 85025; 85027; 93005; 93010; 93017; 94640; 94664; 94760; 96372; 96374; 97116; 97161; 99285-25; A9270; A9500; G0378; J0280; J1650; J1940; J2785; J2916; Q5106

== ENCOUNTER 2023-12-05 22:18 | Emergency (ER) | payer OTHER ==
[~2023-12-05] VITALS: Ht 180.3 cm; Wt 68.0 kg
[~2023-12-05 22:18] MED LIST changes: +AMLODIPINE BES2.5 MG PO; +ASPI81CH PO; +Amlodipine Bes2.5 MG; +CALC.25 PO; +DOC250 PO; +DOCU100 PO; +ELIQUIS2.5 M1 PO; +ELIQUIS2.5 MG PO; +FERSU300 PO; +ISOSORBIDE MONO30 MG PO; +MELATONIN5 M1 PO; +METO2.5 PO; +METOPROLOL TART25 MG PO; +RENVELA800 MG PO; +SENN187 PO; +SEVEC800 PO; +SPIR25 PO; +TAMSULOSIN HCL0.4 M1 PO; +VITAMIN C125 MG PO; +Vitamin C100 M1 PO
[2023-12-05 23:14] LABS: BASOPHILS ABSOLUTE AUTO 0.02 K/mm3 (0.00-0.23); BASOPHILS PERCENT AUTO 0 % (0-2); EOSINOPHILS ABSOLUTE AUTO 0.24 K/mm3 (0.00-0.68); EOSINOPHILS PERCENT AUTO 3 % (0-6); Hematocrit 35.9 % (37.0-53.0); Hemoglobin 11.6 g/dL (13.5-17.5); IMMATURE GRAN ABSOLUTE AUTO 0.02 K/mm3 (0.00-0.10); IMMATURE GRAN PERCENT AUTO 0 % (0-1); LYMPHOCYTES ABSOLUTE AUTO 1.52 K/mm3 (0.84-5.20); LYMPHOCYTES PERCENT AUTO 17 % (21-46); MONOCYTES ABSOLUTE AUTO 0.76 K/mm3 (0.16-1.47); MONOCYTES PERCENT AUTO 9 % (4-13); Mean Corpuscular HGB 30.6 pg (26.0-34.0); Mean Corpuscular HGB Conc 32.3 g/dL (31.5-36.5); Mean Corpuscular Volume 95 fL (80-100); Mean Platelet Volume 10.1 fL (9.1-12.4); NEUTROPHILS PERCENT AUTO 71 % (41-73); Platelet Count 113 K/mm3 (150-400); RDW Coefficient Variation 12.9 % (11.7-14.2); RDW Standard Deviation 44.5 fL (35.1-46.3); Red Blood Cell Count 3.79 M/mm3 (4.30-5.90); White Blood Cell Count 8.86 K/mm3 (4.00-11.30)
[2023-12-05 23:30] LABS: Albumin, Blood 3.1 g/dL (3.4-5.0); Albumin/Globulin Ratio 0.7 (0.8-1.8); Bilirubin, Total 0.8 mg/dL (0.1-1.0); Bun/Creatinine Ratio 10.7 (12.0-20.0); Calcium, Blood 8.9 mg/dL (8.5-10.1); Creatinine, Blood 3.18 mg/dL (0.60-1.20); Globulin, Blood 4.7 g/dL (2.2-4.0); Magnesium, Blood 2.7 mg/dL (1.6-2.4); Potassium, Blood 4.2 mmol/L (3.5-5.5); Total Protein, Blood 7.8 g/dL (6.4-8.2)
[2023-12-06 01:30] VITALS: BP 160/94
== END 2023-12-06 01:54 | disposition home or self-care (01) ==
LOC: ER 22:18
PROVIDERS: Physician Assistant
DX: I13.0 Hypertensive heart and chronic kidney disease with heart failure and stage 1 through stage 4 chronic kidney disease, or unspecified chronic kidney disease (principal); N18.4 Chronic kidney disease, stage 4 (severe); I50.42 Chronic combined systolic (congestive) and diastolic (congestive) heart failure; Z91.041 Radiographic dye allergy status; Z79.899 Other long term (current) drug therapy; Z79.82 Long term (current) use of aspirin; E78.5 Hyperlipidemia, unspecified; J44.9 Chronic obstructive pulmonary disease, unspecified; I25.2 Old myocardial infarction; Z87.891 Personal history of nicotine dependence
CPT/HCPCS: 71046; 80053; 83735; 84484; 85025; 93005; 93010

== ENCOUNTER 2024-05-22 11:28 | Emergency (ER) | payer OTHER ==
[~2024-05-22] VITALS: Ht 180.3 cm; Wt 63.5 kg
[2024-05-22 12:16] LABS: BASOPHILS ABSOLUTE AUTO 0.01 K/mm3 (0.00-0.23); BASOPHILS PERCENT AUTO 0 % (0-2); EOSINOPHILS ABSOLUTE AUTO 0.09 K/mm3 (0.00-0.68); EOSINOPHILS PERCENT AUTO 2 % (0-6); Hematocrit 29.1 % (37.0-53.0); Hemoglobin 9.2 g/dL (13.5-17.5); IMMATURE GRAN ABSOLUTE AUTO 0.02 K/mm3 (0.00-0.10); IMMATURE GRAN PERCENT AUTO 0 % (0-1); LYMPHOCYTES ABSOLUTE AUTO 0.92 K/mm3 (0.84-5.20); LYMPHOCYTES PERCENT AUTO 18 % (21-46); MONOCYTES PERCENT AUTO 8 % (4-13); Mean Corpuscular HGB 31.7 pg (26.0-34.0); Mean Corpuscular HGB Conc 31.6 g/dL (31.5-36.5); Mean Corpuscular Volume 100 fL (80-100); Mean Platelet Volume 10.5 fL (9.1-12.4); NEUTROPHILS PERCENT AUTO 73 % (41-73); Platelet Count 102 K/mm3 (150-400); RDW Coefficient Variation 12.9 % (11.7-14.2); RDW Standard Deviation 47.7 fL (35.1-46.3); White Blood Cell Count 5.24 K/mm3 (4.00-11.30)
[2024-05-22 12:23] LABS: Albumin, Blood 2.6 g/dL (3.4-5.0); Albumin/Globulin Ratio 0.7 (0.8-1.8); Bilirubin, Total 0.9 mg/dL (0.1-1.0); Bun/Creatinine Ratio 12.4 (12.0-20.0); Calcium, Blood 7.9 mg/dL (8.5-10.1); Creatinine, Blood 2.98 mg/dL (0.60-1.20); Globulin, Blood 3.5 g/dL (2.2-4.0); Potassium, Blood 4.2 mmol/L (3.5-5.5); Total Protein, Blood 6.1 g/dL (6.4-8.2)
[2024-05-22 13:45] VITALS: BP 134/90
[2024-05-23] MEDS ORDERED: METO25ER PO (10:19)
[2024-05-23] MEDS ORDERED: NITR.4SL SL (10:22)
== END 2024-05-22 13:45 | disposition home or self-care (01) ==
LOC: ER 11:28
PROVIDERS: Emergency Medicine
DX: R07.9 Chest pain, unspecified (principal); I71.22 Aneurysm of the aortic arch, without rupture; I71.21 Aneurysm of the ascending aorta, without rupture; I25.2 Old myocardial infarction; N18.9 Chronic kidney disease, unspecified; Z88.8 Allergy status to other drugs, medicaments and biological substances; Z91.041 Radiographic dye allergy status; Z79.899 Other long term (current) drug therapy; Z79.82 Long term (current) use of aspirin; Z87.891 Personal history of nicotine dependence
CPT/HCPCS: 71045; 80053; 84484; 85025; 93005; 93010; 99285-25

== ENCOUNTER 2024-05-23 03:41 | Observation (INO) | payer OTHER ==
[~2024-05-23] VITALS: Ht 180.3 cm; Wt 62.0 kg
[2024-05-23 04:14] LABS: BASOPHILS ABSOLUTE AUTO 0.01 K/mm3 (0.00-0.23); BASOPHILS PERCENT AUTO 0 % (0-2); EOSINOPHILS ABSOLUTE AUTO 0.06 K/mm3 (0.00-0.68); EOSINOPHILS PERCENT AUTO 1 % (0-6); Hematocrit 32.6 % (37.0-53.0); Hemoglobin 10.5 g/dL (13.5-17.5); IMMATURE GRAN ABSOLUTE AUTO 0.02 K/mm3 (0.00-0.10); IMMATURE GRAN PERCENT AUTO 0 % (0-1); LYMPHOCYTES ABSOLUTE AUTO 1.07 K/mm3 (0.84-5.20); LYMPHOCYTES PERCENT AUTO 17 % (21-46); MONOCYTES ABSOLUTE AUTO 0.47 K/mm3 (0.16-1.47); MONOCYTES PERCENT AUTO 7 % (4-13); Mean Corpuscular HGB 32.1 pg (26.0-34.0); Mean Corpuscular HGB Conc 32.2 g/dL (31.5-36.5); Mean Corpuscular Volume 100 fL (80-100); Mean Platelet Volume 10.4 fL (9.1-12.4); NEUTROPHILS ABSOLUTE AUTO 4.84 K/mm3 (1.96-9.15); NEUTROPHILS PERCENT AUTO 75 % (41-73); Platelet Count 109 K/mm3 (150-400); Red Blood Cell Count 3.27 M/mm3 (4.30-5.90); White Blood Cell Count 6.47 K/mm3 (4.00-11.30)
[2024-05-23 04:37] LABS: Albumin/Globulin Ratio 0.8 (0.8-1.8); Bilirubin, Total 0.9 mg/dL (0.1-1.0); Creatinine, Blood 3.08 mg/dL (0.60-1.20); Globulin, Blood 3.9 g/dL (2.2-4.0); Potassium, Blood 5.1 mmol/L (3.5-5.5); Total Protein, Blood 6.9 g/dL (6.4-8.2)
[2024-05-23] MEDS ORDERED: FentaNYL Citrate 50 MCG/ML 2 ML Injection IV ONE (04:40)
[2024-05-23] MEDS ORDERED: Aspirin 325 MG Tab PO ONE (05:25)
[2024-05-23] MEDS ORDERED: Nitroglycerin 0.4 MG SUBL SL PRN (05:40)
[2024-05-23] MEDS ORDERED: Ondansetron HCl 2 MG / ML 2ML Vial IV PRN (05:40)
[2024-05-23] MEDS ORDERED: FentaNYL Citrate 50 MCG/ML 2 ML Injection IV PRN ×2 (05:40→09:05)
[2024-05-23] MEDS ORDERED: Clopidogrel Bisulfate 75 MG Tab PO ONE (07:00)
[2024-05-23 08:56] VITALS: BP 153/104
[2024-05-23] MEDS ORDERED: Enoxaparin 30 MG/0.3 ML SYR SC SCH (09:00)
[2024-05-23 09:02] VITALS: BP 146/77
[2024-05-23] MEDS ORDERED: DiphenhydrAMINE HCL 25 MG Cap PO ONE (09:05)
[2024-05-23] MEDS ORDERED: Lactated Ringer's 500 ML IV ONE (09:05)
[2024-05-23] MEDS ORDERED: Clopidogrel Bisulfate 75 MG Tab ONE (09:51)
[2024-05-23] MEDS ORDERED: METO25ER PO (10:19)
[2024-05-23] MEDS ORDERED: NITR.4SL SL (10:22)
[2024-05-23 11:04] VITALS: BP 160/95
[2024-05-23] MEDS ORDERED: Calcitriol 0.25 MCG Cap PO SCH (11:25)
[2024-05-23] MEDS ORDERED: OxyCODONE HCL 5 MG TAB PO PRN (11:30)
[2024-05-23] MEDS ORDERED: Albuterol HFA200 ACT/6.7 GM INH INH PRN (11:40)
[2024-05-23] MEDS ORDERED: Metoprolol Succinate 25 MG TABCR PO SCH (12:00)
[2024-05-23] MEDS ORDERED: Sevelamer Carbonate 800 MG Tab PO SCH (12:30)
--- NOTE | 2024-05-23 12:50 | NUR ---
WHEN MEDICATING THE PT AROUND NOON HE STATED HE TAKES ALL OF HIS PILLS TOGETHER. WHEN TRYING TO TAKE HIS PILLS HE GO ONE STUCK IN HIS THROAT AND IT TOOK A FEW MINUTES TO GET IT DISLODGED. I ASKED THE PT'S WIF EIF HE HAS ISSUES TAKING HIS PILLS AT HOME OR ANY SWALLOWING ISSUES. THE PT'S STATED THAT HE HAS BEEN COUGHING MORE ON FOOD RECENTLY. I CALLED DR. LANDAVERDE AT 1252 AND AM WAITING ON A CALL BACK TO INQUIRE ABOUT A SPEECH EVAL.
[2024-05-23 15:36] VITALS: BP 156/95
--- NOTE | 2024-05-23 16:38 | NUR ---
Upon receiving a referral for spiritual care, I visted the patient. Patient is resting when I enter the patient's rm. He talks about his medical problems and his . States that he is sleepy but welcomes prayer. I gladly provided prayer. Patient voices appreciation.
--- NOTE | 2024-05-23 17:05 | NUR ---
SHIFT SUMMARY THIS PT WAS A NEW ADMIT THIS MORNING. HE HAD A CT PE D/T ELEVATED D-DIMER AND IT CAME BACK NEGATIVE. D/T THE CONTRAST THE PT WAS GIVEN A 500CC BOLUS TO HELP FLUSH HIS ONE WORKING KIDNEY. TOMORROW THE PT WILL HAVE A STRESS TEST AND WILL HAVE TO BE NPO AT 0000. ON TELE HE HAS BEEN AFIB 40'S-90'S, BP STABLE, AND SP02 >90% ON RA. 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 HE IS A POOR HISTORIAN BUT IS ALERT AND ORINETEDX3. HIS WAS ABLE TO HELP ANSWER QUESTIONS ABOUT HIS HISTORY. THE PT HAS A SPEECH EVALUATION ORDERED D/T CHOKING ON MEDICATIONS, REPORTS OF CHOKING ON FOOD AT HOME, RECENT LOSS OF 30LBS, AND POOR APPETITE. GAMALIEL GALLARDO SPEECH SAID SHE WILL COME SEE THE PT IN THE MORNING. SEE NOTES FOR ANY UPDATES. O
[2024-05-23 20:37] VITALS: BP 163/89
[2024-05-23] MEDS ORDERED: Melatonin 5 MG Tablet PO SCH (21:00)
[2024-05-23] MEDS ORDERED: Docusate Sodium 100 MG Cap PO SCH (21:00)
[2024-05-23] MEDS ORDERED: Misc. Tablet PO SCH (21:00)
[2024-05-23] MEDS ORDERED: Atorvastatin 40 MG Tab PO SCH (21:00)
[2024-05-23 23:11] VITALS: BP 145/99
[2024-05-24 03:08] VITALS: BP 148/94
[2024-05-24 04:02] LABS: BASOPHILS ABSOLUTE AUTO 0.03 K/mm3 (0.00-0.23); BASOPHILS PERCENT AUTO 1 % (0-2); EOSINOPHILS ABSOLUTE AUTO 0.08 K/mm3 (0.00-0.68); EOSINOPHILS PERCENT AUTO 1 % (0-6); Hematocrit 30.9 % (37.0-53.0); Hemoglobin 9.9 g/dL (13.5-17.5); IMMATURE GRAN ABSOLUTE AUTO 0.01 K/mm3 (0.00-0.10); IMMATURE GRAN PERCENT AUTO 0 % (0-1); LYMPHOCYTES ABSOLUTE AUTO 1.17 K/mm3 (0.84-5.20); LYMPHOCYTES PERCENT AUTO 19 % (21-46); MONOCYTES ABSOLUTE AUTO 0.55 K/mm3 (0.16-1.47); MONOCYTES PERCENT AUTO 9 % (4-13); Mean Corpuscular HGB 31.8 pg (26.0-34.0); Mean Corpuscular Volume 99 fL (80-100); Mean Platelet Volume 10.4 fL (9.1-12.4); NEUTROPHILS ABSOLUTE AUTO 4.32 K/mm3 (1.96-9.15); NEUTROPHILS PERCENT AUTO 70 % (41-73); Platelet Count 101 K/mm3 (150-400); RDW Coefficient Variation 13.1 % (11.7-14.2); RDW Standard Deviation 46.8 fL (35.1-46.3); Red Blood Cell Count 3.11 M/mm3 (4.30-5.90); White Blood Cell Count 6.16 K/mm3 (4.00-11.30)
[2024-05-24 06:16] LABS: Albumin, Blood 2.6 g/dL (3.4-5.0); Albumin/Globulin Ratio 0.7 (0.8-1.8); Bun/Creatinine Ratio 12.5 (12.0-20.0); Calcium, Blood 8.3 mg/dL (8.5-10.1); Creatinine, Blood 2.97 mg/dL (0.60-1.20); Globulin, Blood 3.7 g/dL (2.2-4.0); Potassium, Blood 4.3 mmol/L (3.5-5.5); Total Protein, Blood 6.3 g/dL (6.4-8.2)
--- NOTE | 2024-05-24 06:30 | NUR ---
SHIFT SUMMARY PATIENT ALERT AND ORINETED X3-4. STAND BY ASSIST WITH AMBULATION. MEDICATED PER EMAR FOR CHEST PAIN AND BACK PAIN. PATIENT DENIES HAVING ANY SHORTNESS OF BREATH, ROOM AIR WITH SPO2 >90%. VITAL SIGNS STABLE, AFIB 70'S ON TELE. NO ACUTE ISSUES NOTED OVERNIGHT. WILL CONTINUE TO MONITOR. CALL LIGHT WITHIN REACH.
[2024-05-24] MEDS ORDERED: Tamsulosin HCl 0.4 MG Cap PO SCH (09:00)
[2024-05-24] MEDS ORDERED: Ferrous Sulfate 325 MG Tab PO SCH (09:00)
[2024-05-24] MEDS ORDERED: Isosorbide Mononitrate 30 MG TABCR PO SCH (09:00)
[2024-05-24] MEDS ORDERED: Bumetanide 1 MG Tab PO SCH (09:00)
[2024-05-24 09:21] VITALS: BP 141/95
[2024-05-24 11:22] VITALS: BP 149/89
--- NOTE | 2024-05-24 12:25 | NUR ---
Stress test is ongoing. The pt has been alert, oriented and cooperative this morning. He showed no difficulty taking his pills whole with water, one at a time. He took the large pill, Renvela, with applesauce at my suggestion. No coughing noted while eating a late breakfast after stress test was started. NPO at this time, waiting on the 2nd portion of the test. is at the bedside.
[2024-05-24] MEDS ORDERED: Regadenoson 0.4 MG/5 ML SYRINGE ONE (13:37)
[2024-05-24] MEDS ORDERED: Caffeine Citrated 60 MG/3 ML Vial ONE (13:37)
[2024-05-24 14:28] VITALS: BP 124/85
--- NOTE | 2024-05-24 14:31 | NUR ---
c/o pain 4/10 , "sharp, worse with deep breaths" just before lexiscan was started.. Given 10 mg oxycodone. He said he would rather have IV fentanyl . Lexiscan complete, and pt ate lunch and had some coffee. States his pain is stil 4/10. Lying in bed, eyes closed, respirations even and unlabored. Vital signs are stable. Afib 75 bpm by tele
--- NOTE | 2024-05-24 15:50 | NUR ---
Pt was able to eat lunch without any noted difficulty. He refused to take his oral medication with applesauce for ease of swallowing this afternoon. He took them with water, and no noted difficulty. No coughing. Pt denies any trouble swallowing pills nor food/drink.
--- NOTE | 2024-05-24 18:04 | NUR ---
pt declined dinner. He was sleeping when I awakened him to ask if he wanted to eat. He is drinking ensure instead. Update from Dr. Christy that the pt will be staying overnight for results of the stress test.
[2024-05-24 20:02] VITALS: BP 106/67
[2024-05-24 23:40] VITALS: BP 118/81
[2024-05-25 04:20] VITALS: BP 116/84
--- NOTE | 2024-05-25 06:18 | NUR ---
SHIFT SUMMARY PATIENT ALERT AND ORINETED X4. DENIED EXPERIENCING ANY CHEST PAIN OR SHORTNESS OF BREATH. ON ROOM AIR WITH SPO2 >90%. VITAL SIGNS STABLE, AFIB ON TELE IN THE 70'S. NO ACUTE ISSUES NOTED OVERNIGHT. WILL CONTINUE TO MONITOR. CALL LIGHT WITHIN REACH.
[2024-05-25 07:27] VITALS: BP 132/80
[2024-05-25] MEDS ORDERED: COLCHICINE0.6 MG PO (11:31)
--- NOTE | 2024-05-25 12:57 | NUR ---
PT DISCHARGED TO HOME WIHT DISCHARGE ORDERS. ALL NEW MEDICATIONS AND DISCHARGE INSTRUCTIONS DISCLOSED WITH BOTH THE AND THE PT. ALL BELONGINGS SENT WITH THE PT. PT ACCOMPANIED VIA WHEELCHAIR FOR TRANSPORT
== END 2024-05-25 12:35 | disposition home or self-care (01) ==
LOC: ER 03:41 → ERHOLD 03:42 → PCU 03:42 → ERHOLD 03:42 → PCU 08:25
PROVIDERS: Student in an Organized Health Care Education/Training Program; ADMIT Internal Medicine
DX: R07.81 Pleurodynia (principal); I71.20 Thoracic aortic aneurysm, without rupture, unspecified; I13.0 Hypertensive heart and chronic kidney disease with heart failure and stage 1 through stage 4 chronic kidney disease, or unspecified chronic kidney disease; N18.4 Chronic kidney disease, stage 4 (severe); I50.42 Chronic combined systolic (congestive) and diastolic (congestive) heart failure; Z99.2 Dependence on renal dialysis; I48.91 Unspecified atrial fibrillation; I25.10 Atherosclerotic heart disease of native coronary artery without angina pectoris; I42.9 Cardiomyopathy, unspecified; E78.5 Hyperlipidemia, unspecified; J44.9 Chronic obstructive pulmonary disease, unspecified; Z87.891 Personal history of nicotine dependence; Z95.5 Presence of coronary angioplasty implant and graft; Z79.899 Other long term (current) drug therapy; Z88.8 Allergy status to other drugs, medicaments and biological substances
CPT/HCPCS: 36415; 71260; 78452; 80053; 83880; 84484; 85025; 85379; 93005; 93010; 93017; 93306; 94762; 96372; 96374; 96376; 99285-25; A9270; A9500; G0378; J0706; J1650; J2785; J3010; J7120; Q9967

== ENCOUNTER 2024-07-19 22:52 | Inpatient (IN) | payer OTHER ==
[~2024-07-19] VITALS: Ht 180.3 cm; Wt 62.6 kg
[~2024-07-19 22:52] MED LIST changes: +COLCHICINE0.6 MG PO; +METO25ER PO
[2024-07-19 23:23] LABS: BASOPHILS ABSOLUTE AUTO 0.01 K/mm3 (0.00-0.23); BASOPHILS PERCENT AUTO 0 % (0-2); EOSINOPHILS PERCENT AUTO 2 % (0-6); Hematocrit 25.2 % (37.0-53.0); Hemoglobin 7.8 g/dL (13.5-17.5); IMMATURE GRAN ABSOLUTE AUTO 0.01 K/mm3 (0.00-0.10); IMMATURE GRAN PERCENT AUTO 0 % (0-1); LYMPHOCYTES ABSOLUTE AUTO 1.14 K/mm3 (0.84-5.20); LYMPHOCYTES PERCENT AUTO 22 % (21-46); MONOCYTES ABSOLUTE AUTO 0.48 K/mm3 (0.16-1.47); MONOCYTES PERCENT AUTO 9 % (4-13); Mean Corpuscular HGB 32.4 pg (26.0-34.0); Mean Corpuscular Volume 105 fL (80-100); Mean Platelet Volume 10.5 fL (9.1-12.4); NEUTROPHILS ABSOLUTE AUTO 3.43 K/mm3 (1.96-9.15); NEUTROPHILS PERCENT AUTO 66 % (41-73); Platelet Count 90 K/mm3 (150-400); RDW Coefficient Variation 13.3 % (11.7-14.2); RDW Standard Deviation 50.6 fL (35.1-46.3); Red Blood Cell Count 2.41 M/mm3 (4.30-5.90); White Blood Cell Count 5.17 K/mm3 (4.00-11.30)
[2024-07-19 23:41] LABS: Albumin, Blood 2.6 g/dL (3.4-5.0); Albumin/Globulin Ratio 0.8 (0.8-1.8); Bilirubin, Total 1.1 mg/dL (0.1-1.0); Bun/Creatinine Ratio 12.9 (12.0-20.0); Calcium, Blood 8.1 mg/dL (8.5-10.1); Creatinine, Blood 3.81 mg/dL (0.60-1.20); Globulin, Blood 3.4 g/dL (2.2-4.0); Potassium, Blood 4.4 mmol/L (3.5-5.5)
[2024-07-20] VITALS (8 sets, daily range): BP systolic 90–110; BP diastolic 58–89
[2024-07-20] MEDS ORDERED: NS 1,000 ML IV ONE (02:45)
[2024-07-20] MEDS ORDERED: Ondansetron HCl 2 MG / ML 2ML Vial IV PRN (02:45)
[2024-07-20 03:44] LABS: Source, Urine Foley catheter
[2024-07-20 03:52] LABS: Appearance, Urine Bloody (Clear); Bilirubin, Urine Neg (Neg); Blood, Urine 5+ (Neg); Color, Urine Red (P-Yellow); Glucose Qualitative, Urine Neg (Neg); Ketones, Urine Neg (Neg); Leukocyte Esterase, Urine Neg (Neg); Nitrite, Urine Neg (Neg); Protein, Urine 4+ (Neg); Specific Gravity, Urine 1.015 (1.003-1.022); Urobilinogen, Urine NORM (Normal)
[2024-07-20] MEDS ORDERED: FentaNYL Citrate 50 MCG/ML 2 ML Injection IV PRN (03:55)
[2024-07-20 04:02] LABS: Bacteria Mod /hpf; Red Blood Cells, Urine TNTC /hpf (0-2); Squamous Epithelial Cells Rare /hpf (Few)
[2024-07-20 05:29] LABS: BASOPHILS ABSOLUTE AUTO 0.01 K/mm3 (0.00-0.23); BASOPHILS PERCENT AUTO 0 % (0-2); EOSINOPHILS ABSOLUTE AUTO 0.05 K/mm3 (0.00-0.68); EOSINOPHILS PERCENT AUTO 1 % (0-6); Hematocrit 22.8 % (37.0-53.0); IMMATURE GRAN ABSOLUTE AUTO 0.01 K/mm3 (0.00-0.10); IMMATURE GRAN PERCENT AUTO 0 % (0-1); LYMPHOCYTES ABSOLUTE AUTO 1.03 K/mm3 (0.84-5.20); LYMPHOCYTES PERCENT AUTO 22 % (21-46); MONOCYTES ABSOLUTE AUTO 0.46 K/mm3 (0.16-1.47); MONOCYTES PERCENT AUTO 10 % (4-13); Mean Corpuscular HGB 32.6 pg (26.0-34.0); Mean Corpuscular HGB Conc 30.7 g/dL (31.5-36.5); Mean Corpuscular Volume 106 fL (80-100); Mean Platelet Volume 10.5 fL (9.1-12.4); NEUTROPHILS ABSOLUTE AUTO 3.23 K/mm3 (1.96-9.15); NEUTROPHILS PERCENT AUTO 68 % (41-73); Platelet Count 81 K/mm3 (150-400); RDW Coefficient Variation 13.3 % (11.7-14.2); RDW Standard Deviation 51.2 fL (35.1-46.3); Red Blood Cell Count 2.15 M/mm3 (4.30-5.90); White Blood Cell Count 4.79 K/mm3 (4.00-11.30)
[2024-07-20 05:46] LABS: Albumin, Blood 2.3 g/dL (3.4-5.0); Albumin/Globulin Ratio 0.7 (0.8-1.8); Bilirubin, Total 1.1 mg/dL (0.1-1.0); Bun/Creatinine Ratio 13.2 (12.0-20.0); Calcium, Blood 7.9 mg/dL (8.5-10.1); Creatinine, Blood 3.64 mg/dL (0.60-1.20); Globulin, Blood 3.3 g/dL (2.2-4.0); Potassium, Blood 4.2 mmol/L (3.5-5.5); Total Protein, Blood 5.6 g/dL (6.4-8.2)
--- NOTE | 2024-07-20 08:51 | NUR ---
REPORT FROM ED RN AT 0890.
--- NOTE | 2024-07-20 09:28 | NUR ---
ARRIVAL TO PCU PT ARRIVED TO PCU AT 0915 VIA GURNEY AND ON RA. PT ABLE TO TRANSFER FORM CORRY TO BED WITH LITTLE ASSISTANCE, TOLERATED WELL. PT A/OX3-4 AT TIME OF ARRIVAL. DUNLAP IN PLACE AT TIME OF ARRIVAL, HEMATURIA NOTED. NO RPEORT OF SOB, CHEST PAIN AT TIME OF ARRIVAL. PT ABLETO ANSWER MOST HEALTH HISTORY QUESTOINS. PT OORIENTED TO ROOM AND CALL LIGHT.
[2024-07-20] MEDS ORDERED: Morphine Sulfate 4 MG/1 ML Injection IV PRN (11:15)
[2024-07-20] MEDS ORDERED: Morphine Sulfate 10 MG/ML 1MLSYR IV PRN (11:25)
[2024-07-20 11:47] LABS: Hematocrit 21.5 % (37.0-53.0); Hemoglobin 6.6 g/dL (13.5-17.5)
[2024-07-20] MEDS ORDERED: NS 250 ML IV PRN (15:40)
--- NOTE | 2024-07-20 16:54 | NUR ---
Report given to surgical floor nurse Manuela. Pt on RA, sats >92%. Will transfer pt via bed to surgical floor.
--- NOTE | 2024-07-20 17:17 | NUR ---
pt contacted and updated that pt has been transfered to 210.
--- NOTE | 2024-07-20 17:33 | NUR ---
TRANSFER: PT TO ROOM 210 FROM PCU. PT A+O, [place]. BLOOD INFUSING AT 175/HR. DUNLAP DRAINING RED URINE. VSS. DINNER TRAY GIVEN. TELE AFIB. DENIES CP. SCDS TO BLE. DENIES PAIN AT THIS TIME. TO BRING IN HOME MED LIST TO VERIFY. POSSIBLE TRANSFER TO HIGHER LEVEL OF CARE R/T LEAKING AAA. CALL LIGHT IN REACH.
[2024-07-20 19:52] LABS: Hematocrit 22.5 % (37.0-53.0); Hemoglobin 7.1 g/dL (13.5-17.5)
[2024-07-20 23:46] LABS: Hematocrit 22.6 % (37.0-53.0); Hemoglobin 7.1 g/dL (13.5-17.5)
[2024-07-21] VITALS (8 sets, daily range): BP systolic 105–130; BP diastolic 66–90
--- NOTE | 2024-07-21 04:43 | NUR ---
SHIFT SUMMARY PT RESTED T/O NIGHT. PAIN MANAGED PER EMAR. PT TOLERATING PO INTAKE. DUNLAP IN PLACE, HAVING HEMATURIA STILL. VSS. NO OTHER CONCERNS AT THIS TIME, CALL LIGHT WITHIN REACH
[2024-07-21 08:52] LABS: BASOPHILS ABSOLUTE AUTO 0.01 K/mm3 (0.00-0.23); BASOPHILS PERCENT AUTO 0 % (0-2); EOSINOPHILS PERCENT AUTO 2 % (0-6); Hematocrit 21.6 % (37.0-53.0); Hemoglobin 6.9 g/dL (13.5-17.5); IMMATURE GRAN ABSOLUTE AUTO 0.01 K/mm3 (0.00-0.10); IMMATURE GRAN PERCENT AUTO 0 % (0-1); LYMPHOCYTES ABSOLUTE AUTO 1.15 K/mm3 (0.84-5.20); LYMPHOCYTES PERCENT AUTO 23 % (21-46); MONOCYTES ABSOLUTE AUTO 0.47 K/mm3 (0.16-1.47); MONOCYTES PERCENT AUTO 9 % (4-13); Mean Corpuscular HGB 31.9 pg (26.0-34.0); Mean Corpuscular HGB Conc 31.9 g/dL (31.5-36.5); Mean Platelet Volume 10.3 fL (9.1-12.4); NEUTROPHILS ABSOLUTE AUTO 3.36 K/mm3 (1.96-9.15); NEUTROPHILS PERCENT AUTO 66 % (41-73); Platelet Count 84 K/mm3 (150-400); RDW Coefficient Variation 16.3 % (11.7-14.2); RDW Standard Deviation 60.7 fL (35.1-46.3); Red Blood Cell Count 2.16 M/mm3 (4.30-5.90)
[2024-07-21 08:55] LABS: Mean Corpuscular Volume 100 fL (80-100)
[2024-07-21 09:10] LABS: Albumin, Blood 2.3 g/dL (3.4-5.0); Albumin/Globulin Ratio 0.8 (0.8-1.8); Bilirubin, Total 1.1 mg/dL (0.1-1.0); Bun/Creatinine Ratio 14.7 (12.0-20.0); Calcium, Blood 8.1 mg/dL (8.5-10.1); Creatinine, Blood 3.6 mg/dL (0.60-1.20); Potassium, Blood 4.6 mmol/L (3.5-5.5); Total Protein, Blood 5.3 g/dL (6.4-8.2)
[2024-07-21 16:07] LABS: Hematocrit 23.7 % (37.0-53.0); Hemoglobin 7.6 g/dL (13.5-17.5)
[2024-07-21] MEDS ORDERED: Albuterol 2.5 MG/3 ML VIAL INH PRN (16:35)
--- NOTE | 2024-07-21 16:49 | NUR ---
SHIFT SUMMARY PT A&Ox4, CALLS AND COMMUNICATES NEEDS APPROPRIATELY. BP STALBE, AFIB w/ PVCs AND V-PACED, DENIES CP/PRESSURE. SpO2> 92% RA, DENIES SOB. MANAGED PAIN PER EMAR. DUNLAP CATH IN PLACE, PATENT & DRAINING DARK RED URINE TO GRAVITY. PT REMAINED BEDREST THROUGHOUT SHIFT, Q2 TURNS PROVIDED. 1 UNIT OF PRBCs ADMINISTERED WITH NO ADVERSE REACTIONS. NO OTHER EVENTS, WILL REPORT TO ONCOMING RN.
[2024-07-21 20:34] LABS: Hemoglobin 7.5 g/dL (13.5-17.5)
[2024-07-21] MEDS ORDERED: Melatonin 5 MG Tablet PO SCH (21:00)
[2024-07-21] MEDS ORDERED: Metoprolol Succinate 25 MG TABCR PO SCH (21:00)
[2024-07-21] MEDS ORDERED: Atorvastatin 40 MG Tab PO SCH (21:00)
[2024-07-22] MEDS ORDERED: DiphenhydrAMINE HCL 25 MG Cap PO PRN (04:00)
[2024-07-22 04:31] VITALS: BP 114/74
--- NOTE | 2024-07-22 05:10 | NUR ---
SHIFT SUMMARY PT RESTLESS DURING THE NIGHT. C/O ITCHING, DR NOTIFIED NEW ORDER FOR BENYDRAL OBTAINED. PT HAVING HEMATURIA, DUNLAP IN PLACE. TOLERATING SMALL AMOUNTS OF PO INTAKE. VSS. NO OTHER COCERNS AT THIS TIME, CALL LIGHT WITHIN REACH
[2024-07-22 05:34] LABS: BASOPHILS ABSOLUTE AUTO 0.01 K/mm3 (0.00-0.23); BASOPHILS PERCENT AUTO 0 % (0-2); EOSINOPHILS ABSOLUTE AUTO 0.11 K/mm3 (0.00-0.68); EOSINOPHILS PERCENT AUTO 2 % (0-6); Hematocrit 22.2 % (37.0-53.0); Hemoglobin 7.2 g/dL (13.5-17.5); IMMATURE GRAN ABSOLUTE AUTO 0.02 K/mm3 (0.00-0.10); IMMATURE GRAN PERCENT AUTO 0 % (0-1); LYMPHOCYTES ABSOLUTE AUTO 1.18 K/mm3 (0.84-5.20); LYMPHOCYTES PERCENT AUTO 24 % (21-46); MONOCYTES ABSOLUTE AUTO 0.56 K/mm3 (0.16-1.47); MONOCYTES PERCENT AUTO 11 % (4-13); Mean Corpuscular HGB 31.4 pg (26.0-34.0); Mean Corpuscular HGB Conc 32.4 g/dL (31.5-36.5); Mean Corpuscular Volume 97 fL (80-100); Mean Platelet Volume 10.2 fL (9.1-12.4); NEUTROPHILS ABSOLUTE AUTO 3.07 K/mm3 (1.96-9.15); NEUTROPHILS PERCENT AUTO 62 % (41-73); Platelet Count 81 K/mm3 (150-400); RDW Coefficient Variation 18.6 % (11.7-14.2); RDW Standard Deviation 65.5 fL (35.1-46.3); Red Blood Cell Count 2.29 M/mm3 (4.30-5.90); White Blood Cell Count 4.95 K/mm3 (4.00-11.30)
[2024-07-22 05:56] LABS: Bun/Creatinine Ratio 16.1 (12.0-20.0); Calcium, Blood 8.4 mg/dL (8.5-10.1); Creatinine, Blood 3.54 mg/dL (0.60-1.20); Potassium, Blood 4.8 mmol/L (3.5-5.5)
[2024-07-22 07:19] VITALS: BP 136/72
[2024-07-22 13:39] VITALS: BP 130/67
[2024-07-22 13:51] LABS: International Normalized Ratio 1.4; Prothrombin Time Results 14.6 Sec (9.7-11.5)
--- NOTE | 2024-07-22 14:06 | NUR ---
PAIN TO LUQ/"HEART" PT REPORTED 3/10 PAIN, STATING FELT LIKE "HEART HURT". MEDICATED PER ORDERS FOR PAIN W/FENTANYL. CALLED DR KNOWLES AND REPORTED, ORDERS OBTAINED FOR TROPONIN. PT RESTING IN BED, CALL LIGHT IN REACH. DUNLAP DRAINING LIGHT PEACH URINE. SLOWED IRRIGATION DOWN.
[2024-07-22 14:38] LABS: Hematocrit 22.8 % (37.0-53.0); Hemoglobin 7.4 g/dL (13.5-17.5); Mean Corpuscular HGB 31.2 pg (26.0-34.0); Mean Corpuscular HGB Conc 32.5 g/dL (31.5-36.5); Mean Corpuscular Volume 96 fL (80-100); Mean Platelet Volume 10.8 fL (9.1-12.4); Platelet Count 82 K/mm3 (150-400); RDW Coefficient Variation 18.1 % (11.7-14.2); RDW Standard Deviation 63.5 fL (35.1-46.3); Red Blood Cell Count 2.37 M/mm3 (4.30-5.90); White Blood Cell Count 4.74 K/mm3 (4.00-11.30)
--- NOTE | 2024-07-22 14:50 | NUR ---
DR KNOWLES IN TO SEE PT.
--- NOTE | 2024-07-22 17:05 | NUR ---
SUMMARY PT RESTING IN BED AT THIS TIME. HAS DECLINED BED BATH AND REPOSITIONING T/O SHIFT. NEW DUNLAP CATH W/BLADDER IRRIGATION PLACED THIS SHIFT. DRAINING YELLOW URINE AT THIS TIME. ATTEMPTS TO FIND ACCEPTING HOSPITAL TO TRANSFER PATIENT FOR HIGHER LEVEL OF CARE UNSUCCESSFUL. PT C/O LUQ PAIN, STATING FELT LIKE "HEART HURT", RATING 3/10. MEDICATED W/FENTANYL PER ORDERS AND NOTIFIED DR KNOWLES WHO ORDERED TROPONIN. PT REPORTS PAIN IMPROVED. CALL LIGHT IN REACH.
[2024-07-22 19:36] VITALS: BP 119/79
--- NOTE | 2024-07-22 21:37 | NUR ---
PATIENT TRANSFER UPDATE RECIEVED A PHONE CALL FROM A WOMAN WHO WAS ASSISTING IN FINDING AN ACCEPTING HOSPITAL FOR THIS PATIENT. SHE INFORMED ME THATTHE PATIENT IS ON THE WAIT LIST FOR [facility] BUT THAT SHE HAS NO ESTIMATE ON HOW LONG THAT WAIT WILL BE, BUT THAT [facility] SAID THEY COULD PLACE HIM ON THEIR WAIT LIST AND POTENTIALLY TAKE HIM WITHIN THE NEXT FEW DAYS. I GAVE THIS INFORMATION TO THE HOSPITLAIST WITH THE [facility] TRANSFER CENTERS PHONE NUMBER. FOR FUTURE REFERENCE IT IS [phone].
[2024-07-23 01:59] VITALS: BP 129/77
[2024-07-23 02:29] VITALS: BP 133/76
--- NOTE | 2024-07-23 02:46 | NUR ---
VITALS UPDATE VITALS TAKEN AT 0159 ON 07/23/24, RESPIRATIONS WERE MISTYPED. RR OF 20, RATHER THAN 28.
[2024-07-23 02:50] LABS: Hematocrit 23.7 % (37.0-53.0); Hemoglobin 7.6 g/dL (13.5-17.5); Mean Corpuscular HGB Conc 32.1 g/dL (31.5-36.5); Mean Corpuscular Volume 97 fL (80-100); Mean Platelet Volume 10.3 fL (9.1-12.4); Platelet Count 91 K/mm3 (150-400); RDW Coefficient Variation 17.3 % (11.7-14.2); RDW Standard Deviation 61.6 fL (35.1-46.3); Red Blood Cell Count 2.45 M/mm3 (4.30-5.90); White Blood Cell Count 5.26 K/mm3 (4.00-11.30)
[2024-07-23 03:12] LABS: Bun/Creatinine Ratio 15.7 (12.0-20.0); Calcium, Blood 8.7 mg/dL (8.5-10.1); Creatinine, Blood 3.43 mg/dL (0.60-1.20)
--- NOTE | 2024-07-23 03:24 | NUR ---
PATIETNT UPDATE THEOUGHOUT THE SHIFT, THE PATIENT HAS BEEN RECIEVING CONTINUOUS BLADDER IRRIGATION. GOOD RESULTS WERE NOTED. THE PTS URINE HAD STARTED TO APPEAR LIGHT YELLOW WITH ONLY RED SEDIMENT. A NEW BAG OF IRRIGATION FLUID WAS HUNG AT 0015. AT THIS TIME, HIS URINE APPEARED THE SAME COLOR. AROUND 0140 THE PATIENT ASKED FOR PAIN MEDICATION. IT WAS GIVEN AT 0145. AT THIS TIME, THE PATIENTS URINE REMAINED THE SAME COLOR. THE PATIENT WAS THEN SLIGHTLY REPOSITIONED. AFTER THIS REPOSITIONING, THE DUNLAP IMMEDIATELY TURNED DARK RED AND BEGAN TO DRAIN A SIGNIFIGANT AMOUNT OF WHAT APPEARED TO BE NESHA BLOOD. IRRIGATION RATE WAS INCREASED AND THE ENTIRE BAG OF FLUID WAS USED WITH ONLY A SLIGHT IMPROVEMENT W/ THE PATIENTS OUTPUT COLOR. A NEW BAG OF FLUID WAS HUNG AT 0305. THE PATIENTS CALCULATED OUTPUT AT THIS TIME IS 1025 MLS OF "URINE" WHICH WAS THICK AND DARK RED. HOSPITLAIST NOTIFIED. AM LABS WERE DRAWN EARLY, NO ACUTE FINDINGS NOTED. VSS. PT REPORTS NO NEW SYMPTOMS. INSTRUCTED TO CONTINUE IRRIGATION BY HOSPITALIST AND TO CALL WITH FURTHER CONCERNS. THE PATIENT IS CURRENTLY SLEEPING, IN NO DISTRESS, CALL LIGHT IN REACH
[2024-07-23 04:01] VITALS: BP 136/81
[2024-07-23 05:03] VITALS: BP 137/71
--- NOTE | 2024-07-23 05:14 | NUR ---
SHIFT SUMMARY VSS, TELE READS AFIB 70'S. PT SLEPT ON AND OFF T/O THE NIGHT. PLEASE SEE PREVIOUS RN NOTE FOR AN UPDATE ON THE PATIENTS URINE OUTPUT. CURRENTLY, THE PATIENTS DUNLAP OUTPUT IS A TRANSLUCENT PINK. PT HAS BEEN MEDICATED FOR PAIN PER EMAR, PT REPORTS HE WOULD APPRICIATE TRANSITIONING TO AN ORAL PAIN MEDICATION IF POSSIBLE. NO NEW UPDATES ON BED AVAILABILITY AT OTHER FACILITIES. VERY LOW PO INTAKE NOTED, AND PT IS POORLY TOLLERATING ANY MOVEMENT D/T PAIN. OVERALL, NO FURTHER ACUTE EVENTS NOTED.
[2024-07-23 06:02] LABS: Hematocrit 23.7 % (37.0-53.0); Hemoglobin 7.7 g/dL (13.5-17.5)
[2024-07-23 07:14] VITALS: BP 133/83
[2024-07-23 12:28] LABS: Hematocrit 24.1 % (37.0-53.0); Hemoglobin 7.6 g/dL (13.5-17.5)
[2024-07-23 14:17] VITALS: BP 133/83
--- NOTE | 2024-07-23 15:31 | NUR ---
DISCHARGE PT LEFT WITH TRANSPORT AT 1515. ALL BELONGINGS WITH PATIENT. ATTEMPTED TO CALL SPOUSE PER PT REQUEST BUT NO ANSWER. PT REMAINED CONNECTED TO CBI WITH A SLOW TRICKLE IN. LIGHT PINK IN COLOR. MEDICATED FOR PAIN PRIOR TO TRANSPORT FOR LOWER BACK PAIN. PT TOLERATED WELL. PT TOLERATING DIET DURING SHIFT, Q2 TURNS. PT [id number], CALLING APPROPRIATLY. REPORT CALLED TO CHINO PEREZ AT 1530.
== END 2024-07-23 15:34 | disposition short-term general hospital (02) | DRG 683 ==
LOC: ER 22:52 → ERHOLD 22:53 → PCU 22:53 → SURS 07-20 15:27 → PCU 07-20 15:28 → SURS 07-20 17:20
PROVIDERS: Family Medicine; Internal Medicine; Student in an Organized Health Care Education/Training Program; ADMIT Internal Medicine
PROC: 30233N1 Transfusion of Nonautologous Red Blood Cells into Peripheral Vein, Percutaneous Approach (ICD-10-PCS; principal; 2024-07-20)
PROC: 0T9B70Z Drainage of Bladder with Drainage Device, Via Natural or Artificial Opening (ICD-10-PCS; 2024-07-20)
DX: N17.9 Acute kidney failure, unspecified (principal); I13.0 Hypertensive heart and chronic kidney disease with heart failure and stage 1 through stage 4 chronic kidney disease, or unspecified chronic kidney disease; S37.011A Minor contusion of right kidney, initial encounter; T82.330A Leakage of aortic (bifurcation) graft (replacement), initial encounter; I50.42 Chronic combined systolic (congestive) and diastolic (congestive) heart failure; R31.0 Gross hematuria; D50.0 Iron deficiency anemia secondary to blood loss (chronic); I48.0 Paroxysmal atrial fibrillation; E78.5 Hyperlipidemia, unspecified; E86.0 Dehydration; N18.4 Chronic kidney disease, stage 4 (severe); D63.1 Anemia in chronic kidney disease; J44.9 Chronic obstructive pulmonary disease, unspecified; I25.5 Ischemic cardiomyopathy; Z79.899 Other long term (current) drug therapy; Z79.891 Long term (current) use of opiate analgesic; Z91.041 Radiographic dye allergy status; I25.2 Old myocardial infarction; Z95.5 Presence of coronary angioplasty implant and graft; Z98.890 Other specified postprocedural states; Z87.891 Personal history of nicotine dependence
CPT/HCPCS: 36415; 36430; 51700; 51702; 74176; 80048; 80053; 81001; 84484; 85014; 85018; 85025; 85027; 85610; 86850; 86900; 86901; 86923; 87086; 93005; 93010; 94760; 94762; 96374-59; 96376-59; 99285-25; A9270; G0378; J2270; J3010; J7030; J7050; P9016